=== PATIENT | female | born 1945 | race Caucasian/White ===

== ENCOUNTER 2017-04-19 06:45 | Outpatient (RCR) | payer MEDICARE, BC, SELFPAY ==
[2017-01-31 10:22] VITALS: BMI 29.3
== END 2017-05-18 23:59 ==
LOC: CR 06:45
PROVIDERS: Family Provider Family Medicine; PCP Family Medicine; Visit Provider Internal Medicine Cardiovascular Disease
DX: Z00.00 Encounter for general adult medical examination without abnormal findings (principal)

== ENCOUNTER 2017-05-13 13:07 | Outpatient (RCR) | payer MEDICARE, BC, SELFPAY ==
[2017-01-31 10:22] VITALS: BMI 29.3
[2017-05-06 15:41] LABS: Prothrombin Time (Protime)PT. 44.7 SECONDS (11.7-14.9)
[2017-05-09 13:11] LABS: International Normalized Ratio 2.9; Prothrombin Time (Protime)PT. 28.8 SECONDS (11.7-14.9)
[2017-05-13 14:37] LABS: International Normalized Ratio 1.8; Prothrombin Time (Protime)PT. 20.5 SECONDS (11.7-14.9)
== END 2017-05-13 14:00 | disposition home or self-care (01) ==
LOC: LAB 13:07
PROVIDERS: Family Provider Family Medicine; PCP Family Medicine; Visit Provider Internal Medicine Cardiovascular Disease
DX: I48.0 Paroxysmal atrial fibrillation (principal)
CPT/HCPCS: 36415; 85610

== ENCOUNTER 2017-06-03 08:58 | Outpatient (RCR) | payer MEDICARE, BC, SELFPAY ==
[2017-01-31 10:22] VITALS: BMI 29.3
[2017-05-26 10:56] LABS: International Normalized Ratio 1.7; Prothrombin Time (Protime)PT. 19.4 SECONDS (11.7-14.9)
[2017-06-01 13:36] LABS: International Normalized Ratio 1.5; Prothrombin Time (Protime)PT. 17.7 SECONDS (11.7-14.9)
[2017-06-03 10:49] LABS: International Normalized Ratio 1.8; Prothrombin Time (Protime)PT. 19.8 SECONDS (11.7-14.9)
== END 2017-06-03 09:00 | disposition home or self-care (01) ==
LOC: LAB 08:58
PROVIDERS: Family Provider Family Medicine; PCP Family Medicine; Visit Provider Internal Medicine Cardiovascular Disease
DX: I48.0 Paroxysmal atrial fibrillation (principal)
CPT/HCPCS: 36415; 85610

== ENCOUNTER → 2017-07-13 07:43 | Outpatient (CLI) | payer MEDICARE, BC, SELFPAY ==
[2017-01-31 10:22] VITALS: BMI 29.3
[2017-07-13 09:44] LABS: ALB/GLOB Ratio 1.1 RATIO (0.9-2.4); AST(SGOT) 31 U/L (15-37); Alanine Aminotransfer ALT/SGPT 28 U/L (13-56); Albumin, Serum 3.7 g/dL (3.2-5.0); Alkaline Phosphatase 65 U/L (45-117); Anion Gap 8 (5-15); BUN 17 mg/dL (7-18); BUN/Creat Ratio 20.6 RATIO (10-20); Calcium,Total 8.8 mg/dL (8.5-10.1); Chloride 99 mmol/L (98-107); Cholesterol 149 mg/dL (200); Creatinine, Serum 0.82 mg/dL (0.55-1.02); EST Glomerular Filtration Rate 72 mL/min (>60); Est Glom Filt Rate - Afr Amer 88 mL/min (>60); Globulin 3.5 g/dL (2.2-4.2); Glucose 113 mg/dL (74-106); High Density Lipoprotein 51 mg/dL; Potassium 4.1 mmol/L (3.5-5.1); Protein, Total 7.2 g/dL (6.4-8.2); Sodium Level 139 mmol/L (136-145); Triglycerides 144 mg/dL; Very Low Density Lipoprotein 29 mg/dL (5-40)
[2017-07-13 09:46] LABS: Hemoglobin A1c 6.7 % (4.2-6.3)
== END ==
PROVIDERS: Family Provider Family Medicine; PCP Family Medicine; Visit Provider Family Medicine
DX: I10 Essential (primary) hypertension (principal); E78.2 Mixed hyperlipidemia; E11.49 Type 2 diabetes mellitus with other diabetic neurological complication
CPT/HCPCS: 36415; 80053; 80061; 83036

== ENCOUNTER 2017-08-08 09:43 | Outpatient (RCR) | payer MEDICARE, BC, SELFPAY ==
[2017-01-31 10:22] VITALS: BMI 29.3
[2017-08-08 10:23] LABS: International Normalized Ratio 3.1
== END 2017-08-08 10:00 | disposition home or self-care (01) ==
LOC: LAB 09:43
PROVIDERS: Family Provider Family Medicine; PCP Family Medicine; Visit Provider Internal Medicine Cardiovascular Disease
DX: I48.0 Paroxysmal atrial fibrillation (principal)
CPT/HCPCS: 36415; 85610

== ENCOUNTER → 2017-08-18 08:09 | Outpatient (CLI) | payer MEDICARE, BC, SELFPAY ==
[2017-01-31 10:22] VITALS: BMI 29.3
[2017-08-18 09:53] LABS: AST(SGOT) 23 U/L (15-37); Alanine Aminotransfer ALT/SGPT 27 U/L (13-56); Albumin, Serum 3.7 g/dL (3.2-5.0); Alkaline Phosphatase 66 U/L (45-117); Bilirubin, Direct 0.15 mg/dL (0.00-0.30); Cholesterol 132 mg/dL (200); Globulin 3.7 g/dL (2.2-4.2); High Density Lipoprotein 45 mg/dL; Protein, Total 7.4 g/dL (6.4-8.2); Triglycerides 100 mg/dL; Very Low Density Lipoprotein 20 mg/dL (5-40)
== END ==
PROVIDERS: Family Provider Family Medicine; PCP Family Medicine; Visit Provider Internal Medicine Cardiovascular Disease
DX: I25.10 Atherosclerotic heart disease of native coronary artery without angina pectoris (principal); Z95.5 Presence of coronary angioplasty implant and graft; Z79.899 Other long term (current) drug therapy
CPT/HCPCS: 36415; 80061; 80076

== ENCOUNTER 2017-08-30 09:05 | Outpatient (RCR) | payer MEDICARE, BC, SELFPAY ==
[2017-01-31 10:22] VITALS: BMI 29.3
[2017-08-30 10:47] LABS: International Normalized Ratio 2.7; Prothrombin Time (Protime)PT. 28.8 SECONDS (11.7-14.9)
== END 2017-08-30 10:00 | disposition home or self-care (01) ==
LOC: LAB 09:05
PROVIDERS: Family Provider Family Medicine; PCP Family Medicine; Visit Provider Internal Medicine Cardiovascular Disease
DX: I48.0 Paroxysmal atrial fibrillation (principal)
CPT/HCPCS: 36415; 85610

== ENCOUNTER → 2017-09-21 14:09 | Outpatient (CLI) | payer MEDICARE, BC, SELFPAY ==
[2017-01-31 10:22] VITALS: BMI 29.3
--- NOTE | 2017-09-21 14:09 | DT_ITS ---
This patient was seen during an EMR downtime September 19, 2017 - September 26, 2017. This patient may have a combination of paper and electronic documentation or all paper documentation. All documentation is viewable within the e-chart portion of [facility] for each patient visit.
[2017-09-24 10:47] LABS: International Normalized Ratio 2.7; Prothrombin Time (Protime)PT. 29.1 SECONDS (11.7-14.9)
== END ==
PROVIDERS: Family Provider Family Medicine; PCP Family Medicine; Visit Provider Internal Medicine Cardiovascular Disease
DX: I48.1 Persistent atrial fibrillation (principal)
CPT/HCPCS: 85610

== ENCOUNTER → 2017-10-06 10:57 | Outpatient (CLI) | payer MEDICARE, BC, SELFPAY ==
[2017-01-31 10:22] VITALS: BMI 29.3
--- NOTE | 2017-10-06 11:08 | MRI_ITS ---
STUDY: MRI RIGHT MIDFOOT REASON FOR EXAM: Female, 72 years old. Pain. TECHNIQUE: Standardized fat and water weighted pulse sequences were obtained in all 3 orthogonal planes. COMPARISON: None. FINDINGS: There is a lobular heterogeneous T2 signal hyperintensity 3.2 x 2.8 x 2.2 cm mass in the plantar aspect deep to the flexor muscles extending to the first and second intermetatarsal region at the level of the distal second and third metatarsals, series 6 images 04/10 through . Normal talonavicular articulation. Normal calcaneocuboid articulation. Normal navicular-cuneiform articulations. Normal intercuneiform articulations. Normal first tarsometatarsal articulation. Normal Lisfranc ligament. Normal second and third tarsometatarsal articulations. Normal cuboid fourth and cuboid fifth tarsometatarsal articulation. There is marrow edema due to signal hyperintensity of the shaft of the second metatarsal, series 6 image . Normal tibialis anterior tendon. Normal extensor hallucis longus tendon. Normal extensor digitorum longus tendons. Normal peroneus longus tendon and distal insertion. Normal peroneus brevis tendon and distal insertion. Normal intrinsic muscles of the mid and forefoot region. Normal extensor digitorum brevis muscle. Normal subcutis adipose space. MRI/Lower Ext/No Jt/w/o IMPRESSION: Mass on the plantar aspect. Neuroma is the leading consideration. Stress fracture of the second metatarsal. Electronically Signed: Gopal Hernández MD at 12:36 EDT , Service support ,
== END ==
PROVIDERS: Family Provider Family Medicine; PCP Family Medicine; Visit Provider Podiatrist
DX: M79.9 Soft tissue disorder, unspecified (principal); M79.671 Pain in right foot; M70.871 Other soft tissue disorders related to use, overuse and pressure, right ankle and foot; M84.374A Stress fracture, right foot, initial encounter for fracture
CPT/HCPCS: 73718

== ENCOUNTER 2017-10-18 06:36 | Outpatient (RCR) | payer MEDICARE, BC, SELFPAY ==
[2017-01-31 10:22] VITALS: BMI 29.3
[2017-05-02 09:09] VITALS: BP 100/52; BMI 27.3
== END 2017-11-15 23:59 ==
LOC: CR 06:36
PROVIDERS: Family Provider Family Medicine; PCP Family Medicine; Visit Provider Internal Medicine Cardiovascular Disease
DX: Z00.00 Encounter for general adult medical examination without abnormal findings (principal)

== ENCOUNTER → 2017-11-02 15:00 | Outpatient (CLI) | payer MEDICARE, BC, SELFPAY ==
[2017-01-31 10:22] VITALS: BMI 29.3
== END ==
PROVIDERS: Family Provider Family Medicine; PCP Family Medicine; Visit Provider Internal Medicine Cardiovascular Disease
DX: Z01.810 Encounter for preprocedural cardiovascular examination (principal)
CPT/HCPCS: 93306

== ENCOUNTER → 2017-11-03 07:27 | Outpatient (CLI) | payer MEDICARE, BC, SELFPAY ==
[2017-01-31 10:22] VITALS: BMI 29.3
[2017-11-03 09:12] LABS: Hemoglobin A1c 7.1 % (4.2-6.3)
[2017-11-03 09:14] LABS: Albumin, Serum 3.7 g/dL (3.2-5.0); BUN 20 mg/dL (7-18); BUN/Creat Ratio 21.1 RATIO (10-20); Creatinine, Serum 0.95 mg/dL (0.55-1.02); EST Glomerular Filtration Rate 62 mL/min (>60); Est Glom Filt Rate - Afr Amer 75 mL/min (>60); Glucose 114 mg/dL (74-106); Protein, Total 7.4 g/dL (6.4-8.2)
[2017-11-03 09:15] LABS: AST(SGOT) 34 U/L (15-37); Alanine Aminotransfer ALT/SGPT 34 U/L (13-56); Alkaline Phosphatase 74 U/L (45-117); Anion Gap 6 (5-15); Calcium,Total 9.1 mg/dL (8.5-10.1); Chloride 101 mmol/L (98-107); Cholesterol 149 mg/dL (200); Globulin 3.7 g/dL (2.2-4.2); High Density Lipoprotein 46 mg/dL; Potassium 4.5 mmol/L (3.5-5.1); Sodium Level 140 mmol/L (136-145); Triglycerides 174 mg/dL; Very Low Density Lipoprotein 35 mg/dL (5-40)
== END ==
PROVIDERS: Family Provider Family Medicine; PCP Family Medicine; Visit Provider Family Medicine
DX: E11.49 Type 2 diabetes mellitus with other diabetic neurological complication (principal); I10 Essential (primary) hypertension; E78.2 Mixed hyperlipidemia
CPT/HCPCS: 36415; 80053; 80061; 83036

== ENCOUNTER 2017-11-11 08:58 | Outpatient (RCR) | payer MEDICARE, BC, SELFPAY ==
[2017-01-31 10:22] VITALS: BMI 29.3
[2017-10-27 14:01] LABS: International Normalized Ratio 3.2; Prothrombin Time (Protime)PT. 33.2 SECONDS (11.7-14.9)
[2017-11-11 09:45] LABS: Prothrombin Time (Protime)PT. 40.9 SECONDS (11.7-14.9)
[2017-11-11 09:50] LABS: International Normalized Ratio 4.2
[2017-11-16 14:52] LABS: International Normalized Ratio 2.8
== END 2017-11-11 09:30 | disposition home or self-care (01) ==
LOC: LAB 08:58
PROVIDERS: Family Provider Family Medicine; PCP Family Medicine; Visit Provider Internal Medicine Cardiovascular Disease
DX: I48.0 Paroxysmal atrial fibrillation (principal); Z79.01 Long term (current) use of anticoagulants
CPT/HCPCS: 36415; 36416; 85610

== ENCOUNTER → 2017-11-11 09:09 | Outpatient (CLI) | payer MEDICARE, BC, SELFPAY ==
[2017-01-31 10:22] VITALS: BMI 29.3
--- NOTE | 2017-11-11 09:10 | STE_ITS ---
Reason For Study: CAD/ASHD Stress Results Protocol: Gus Protocol Maximum Predicted HR: 149 bpm Target HR: 127 bpm% Max imum Predicted HR: 66 % DurationHeart Rate Stage (mm:ss) (bpm) BPCom ment BASELINE 48 124/70 STAGE 1 3:00 74 158/82 STAGE 2 3:00 95 170/82INCREASED SOB STAGE 3 0:16 98 / FAT IGUE, SOB, UNABLE TO CONTINUE RECOVERY 60 140/72 Stress Duration: 6:16 mm:ss Maximum Stress HR: 98 bpm Baseline Echocardiogram Findings The estimated ejection fraction is 65 %. Stress Echo Wall motion Data Resting WMIntermediate WMStress WM Resting Wall Motion Wall Motion Stress No regional wall motion No regional wall motion abnormalities noted. abnormalities noted. EKG Data The baseline ECG demonstrates normal sinus rhythm with at rate of _ beats per minute. The patient exercised according to the regular Gus protocol for a total duration of 6:16. The maximum heart rate attained was 102 beats per minute. This was 68% of maximum predicted heart rate. The patient exercised into stage 3 of the Gus protocol. During stress, there were no ST or T wave changes noted to suggest ischemia. Interpretation Summary The estimated ejection fraction is 65 %. Normal, submaximal, treadmill echocardiogram. Negative for ischemia by EKG and echocardiographic criteria. No anginal symptoms noted. Rare PVC noted. Appropriate blood pressure response to exercise. Average exercise capacity for age. Test terminated due to dyspnea and fatigue. Patient had adequate rate pressure product making this an accurate evaluation. Final LVEF is 75%. No complications. Ordering Physician: Kristofer Ward Referring Physician: Kristofer Ward Performed By: Wild Varma RCS
== END ==
PROVIDERS: Family Provider Family Medicine; PCP Family Medicine; Visit Provider Internal Medicine Cardiovascular Disease
DX: Z01.810 Encounter for preprocedural cardiovascular examination (principal); I25.10 Atherosclerotic heart disease of native coronary artery without angina pectoris; E78.5 Hyperlipidemia, unspecified
CPT/HCPCS: 36415; 36416; 85610; 93017; 93350

== ENCOUNTER 2017-12-15 15:17 | Outpatient (RCR) | payer MEDICARE, BC, SELFPAY ==
[2017-01-31 10:22] VITALS: BMI 29.3
[2017-12-07 10:39] LABS: International Normalized Ratio 2.1; Prothrombin Time (Protime)PT. 23.2 SECONDS (11.7-14.9)
[2017-12-15 17:28] LABS: International Normalized Ratio 2.8
== END 2017-12-15 17:00 | disposition home or self-care (01) ==
LOC: LAB 15:17
PROVIDERS: Family Provider Family Medicine; Visit Provider Internal Medicine Cardiovascular Disease
DX: I48.0 Paroxysmal atrial fibrillation (principal); Z79.01 Long term (current) use of anticoagulants
CPT/HCPCS: 36415; 85610

== ENCOUNTER 2017-12-20 06:31 | Outpatient (RCR) | payer SELFPAY ==
[2017-01-31 10:22] VITALS: BMI 29.3
== END 2018-01-15 23:59 ==
LOC: CR 06:31
PROVIDERS: Family Provider Family Medicine; Visit Provider Internal Medicine Cardiovascular Disease
DX: Z00.00 Encounter for general adult medical examination without abnormal findings (principal)

== ENCOUNTER 2018-01-11 09:37 | Outpatient (RCR) | payer MEDICARE, BC, SELFPAY ==
[2017-01-31 10:22] VITALS: BMI 29.3
[2017-12-26 16:13] LABS: Prothrombin Time (Protime)PT. 35.6 SECONDS (11.7-14.9)
[2017-12-26 16:43] LABS: International Normalized Ratio 3.5
[2018-01-04 11:21] LABS: Prothrombin Time (Protime)PT. 23.1 SECONDS (11.7-14.9)
[2018-01-11 10:42] LABS: International Normalized Ratio 2.1; Prothrombin Time (Protime)PT. 23.9 SECONDS (11.7-14.9)
== END 2018-01-11 11:00 | disposition home or self-care (01) ==
LOC: LAB 09:37
PROVIDERS: Visit Provider Internal Medicine Cardiovascular Disease
DX: I48.0 Paroxysmal atrial fibrillation (principal); Z79.01 Long term (current) use of anticoagulants
CPT/HCPCS: 36415; 85610

== ENCOUNTER 2018-02-06 08:36 | Outpatient (RCR) | payer MEDICARE, BC, SELFPAY ==
[2017-01-31 10:22] VITALS: BMI 29.3
[2018-01-25 16:17] LABS: Prothrombin Time (Protime)PT. 22.7 SECONDS (11.7-14.9)
[2018-02-06 10:41] LABS: International Normalized Ratio 2.2; Prothrombin Time (Protime)PT. 24.6 SECONDS (11.7-14.9)
== END 2018-02-06 10:00 | disposition home or self-care (01) ==
LOC: LAB 08:36
PROVIDERS: Referring Provider Internal Medicine Cardiovascular Disease; Visit Provider Internal Medicine Cardiovascular Disease
DX: I48.0 Paroxysmal atrial fibrillation (principal); Z79.01 Long term (current) use of anticoagulants
CPT/HCPCS: 36415; 85610

== ENCOUNTER 2018-03-08 09:14 | Outpatient (RCR) | payer MEDICARE, BC, SELFPAY ==
[2017-01-31 10:22] VITALS: BMI 29.3
[2018-02-24 13:46] LABS: International Normalized Ratio 1.7
[2018-03-06 11:48] LABS: AST(SGOT) 32 U/L (15-37); Alanine Aminotransfer ALT/SGPT 33 U/L (13-56); Albumin, Serum 3.7 g/dL (3.2-5.0); Alkaline Phosphatase 92 U/L (45-117); Bilirubin, Direct 0.17 mg/dL (0.00-0.30); Cholesterol 162 mg/dL (200); High Density Lipoprotein 43 mg/dL; Protein, Total 7.7 g/dL (6.4-8.2); Triglycerides 241 mg/dL; Very Low Density Lipoprotein 48 mg/dL (5-40)
[2018-03-08 10:17] LABS: International Normalized Ratio 2.1; Prothrombin Time (Protime)PT. 23.2 SECONDS (11.7-14.9)
== END 2018-03-17 12:00 | disposition home or self-care (01) ==
LOC: LAB 09:14
PROVIDERS: Physician Assistant Medical; Referring Provider Internal Medicine Cardiovascular Disease; Visit Provider Internal Medicine Cardiovascular Disease
DX: I48.0 Paroxysmal atrial fibrillation (principal); Z79.01 Long term (current) use of anticoagulants; E78.5 Hyperlipidemia, unspecified
CPT/HCPCS: 36415; 80061; 80076; 85610

== ENCOUNTER 2018-03-22 09:49 | Outpatient (RCR) | payer MEDICARE, BC, SELFPAY ==
[2017-01-31 10:22] VITALS: BMI 29.3
[2018-03-22 10:31] LABS: International Normalized Ratio 2.1; Prothrombin Time (Protime)PT. 23.6 SECONDS (11.7-14.9)
== END 2018-04-17 23:59 ==
LOC: CR 09:49
PROVIDERS: Referring Provider Internal Medicine Cardiovascular Disease; Visit Provider Internal Medicine Cardiovascular Disease
DX: Z00.00 Encounter for general adult medical examination without abnormal findings (principal); I48.0 Paroxysmal atrial fibrillation; Z79.01 Long term (current) use of anticoagulants
CPT/HCPCS: 36415; 85610

== ENCOUNTER 2018-04-13 11:13 | Outpatient (RCR) | payer MEDICARE, BC, SELFPAY ==
[2017-01-31 10:22] VITALS: BMI 29.3
[2018-04-13 13:43] LABS: International Normalized Ratio 2.1; Prothrombin Time (Protime)PT. 23.2 SECONDS (11.7-14.9)
== END 2018-04-13 12:00 | disposition home or self-care (01) ==
LOC: LAB 11:13
PROVIDERS: Family Provider Family Medicine; PCP Family Medicine; Referring Provider Internal Medicine Cardiovascular Disease; Visit Provider Internal Medicine Cardiovascular Disease
DX: I48.0 Paroxysmal atrial fibrillation (principal); Z79.01 Long term (current) use of anticoagulants
CPT/HCPCS: 36415; 85610

== ENCOUNTER 2018-05-19 10:52 | Outpatient (RCR) | payer MEDICARE, BC, SELFPAY ==
[2017-01-31 10:22] VITALS: BMI 29.3
[2018-05-19 11:37] LABS: International Normalized Ratio 2.2; Prothrombin Time (Protime)PT. 24.7 SECONDS (11.7-14.9)
== END 2018-06-15 13:16 | disposition home or self-care (01) ==
LOC: LAB 10:52
PROVIDERS: Family Provider Family Medicine; PCP Family Medicine; Referring Provider Internal Medicine Cardiovascular Disease; Visit Provider Internal Medicine Cardiovascular Disease
DX: I48.0 Paroxysmal atrial fibrillation (principal); Z79.01 Long term (current) use of anticoagulants
CPT/HCPCS: 36415; 84439; 84443; 85610

== ENCOUNTER → 2018-05-31 12:13 | Outpatient (CLI) | payer MEDICARE, BC, SELFPAY ==
[2017-01-31 10:22] VITALS: BMI 29.3
[2018-05-19 11:09] VITALS: BMI 28.8
--- NOTE | 2018-05-31 12:16 | STEWCON_ITS ---
Reason For Study: CAD Stress Results Protocol: Gus Protocol Maximum Predicted HR: 148 bpm Target HR: 126 bpm % Maximum Predicted HR: 72 % DurationHeart Rate Stage (mm:ss) (bpm) BP Comment Baseline 61 134/72No Chest Pain; Diluted Definity 2 ML Given Gus Protocol Stage I 3:00 86 160/78No Chest Pain; Legs Heavy; Mild Dyspnea Gus Protocol Stage II 3:00 106 184/80No Chest Pain; Moderate Dyspnea; Fatigue Recovery 66 124/76No Chest Pain Stress Duration: 6:00 mm:ss Maximum Stress HR: 106 bpm METS: 7 Baseline Echocardiogram Findings The estimated ejection fraction is 65 %. Stress Echo Wall motion Data Resting WM Intermediate WM Stress WM Resting Wall Motion Wall Motion Stress No regional wall motion No regional wall motion abnormalities noted. abnormalities noted. EKG Data The baseline ECG displays normal sinus rhythm. The patient exercised according to the regular Gus protocol for a total duration of 6:00. The maximum heart rate attained was 112 beats per minute. This was 75% of maximum predicted heart rate. The patient exercised into stage 3 of the Gus protocol. During stress, there were no ST or T wave changes noted to suggest ischemia. No clinical angina was noted. No arrhythmias noted. Interpretation Summary The estimated ejection fraction is 65 %. Normal, adequate, treadmill echocardiogram. Negative for ischemia by EKG and echocardiographic criteria. No anginal symptoms noted. No arrhythmias noted. Appropriate blood pressure response to exercise. Below average exercise capacity for age. Test terminated due to dyspnea. Although the patient did not reach target heart rate, heart rate pressure product was adequate for testing purposes at 18,768. Final LVEF of 75%. Decreased sensitivity due to poor echo windows requiring Definity enhancing agent. No complications. The study was technically difficult. Contrast injection was performed. Ordering Physician: Kristofer Ward Referring Physician: Kristofer Ward Performed By: Wild Varma RCS
== END ==
PROVIDERS: Referring Provider Internal Medicine Cardiovascular Disease; Visit Provider Internal Medicine Cardiovascular Disease
DX: I25.10 Atherosclerotic heart disease of native coronary artery without angina pectoris (principal); E78.5 Hyperlipidemia, unspecified
CPT/HCPCS: 93017; 93350; Q9957; A4216; C8928

== ENCOUNTER 2018-06-08 08:52 | Outpatient (RCR) | payer MEDICARE, BC, SELFPAY ==
[2017-01-31 10:22] VITALS: BMI 29.3
[2018-05-19 11:09] VITALS: BMI 28.8
[2018-06-08 09:26] LABS: International Normalized Ratio 2.1; Prothrombin Time (Protime)PT. 23.7 SECONDS (11.7-14.9)
== END 2018-06-15 23:59 ==
LOC: CR 08:52
PROVIDERS: Referring Provider Internal Medicine Cardiovascular Disease; Visit Provider Internal Medicine Cardiovascular Disease
DX: I48.0 Paroxysmal atrial fibrillation (principal); Z79.01 Long term (current) use of anticoagulants
CPT/HCPCS: 36415; 85610

== ENCOUNTER 2018-08-09 09:36 | Outpatient (RCR) | payer MEDICARE, BC, SELFPAY ==
[2017-01-31 10:22] VITALS: BMI 29.3
[2018-05-19 11:09] VITALS: BMI 28.8
[2018-07-24 12:41] LABS: International Normalized Ratio 1.6; Prothrombin Time (Protime)PT. 19.2 SECONDS (11.7-14.9)
[2018-08-09 10:29] LABS: International Normalized Ratio 2.8; Prothrombin Time (Protime)PT. 29.2 SECONDS (11.7-14.9)
== END 2018-08-15 16:00 | disposition home or self-care (01) ==
LOC: LAB 09:36
PROVIDERS: Referring Provider Internal Medicine Cardiovascular Disease; Visit Provider Internal Medicine Cardiovascular Disease
DX: I48.0 Paroxysmal atrial fibrillation (principal); Z79.01 Long term (current) use of anticoagulants
CPT/HCPCS: 36415; 85610

== ENCOUNTER 2018-09-20 10:12 | Outpatient (RCR) | payer MEDICARE, BC, SELFPAY ==
[2017-01-31 10:22] VITALS: BMI 29.3
[2018-05-19 11:09] VITALS: BMI 28.8
== END 2018-09-20 11:00 | disposition home or self-care (01) ==
LOC: LAB 10:12
PROVIDERS: Family Provider Family Medicine; PCP Family Medicine; Referring Provider Internal Medicine Cardiovascular Disease; Visit Provider Internal Medicine Cardiovascular Disease
DX: I48.0 Paroxysmal atrial fibrillation (principal); Z79.01 Long term (current) use of anticoagulants
CPT/HCPCS: 36415; 85610

== ENCOUNTER 2018-10-25 13:02 | Outpatient (RCR) | payer MEDICARE, BC, SELFPAY ==
[2017-01-31 10:22] VITALS: BMI 29.3
[2018-05-19 11:09] VITALS: BMI 28.8
[2018-10-25 14:35] LABS: International Normalized Ratio 2.3; Prothrombin Time (Protime)PT. 25.4 SECONDS (11.7-14.9)
== END 2018-11-15 17:28 | disposition home or self-care (01) ==
LOC: LAB 13:02
PROVIDERS: Family Provider Family Medicine; PCP Family Medicine; Referring Provider Internal Medicine Cardiovascular Disease; Visit Provider Internal Medicine Cardiovascular Disease
DX: I48.0 Paroxysmal atrial fibrillation (principal); Z79.01 Long term (current) use of anticoagulants
CPT/HCPCS: 36415; 85610

== ENCOUNTER 2018-12-21 06:57 | Outpatient (RCR) | payer MEDICARE, BC, SELFPAY ==
[2017-01-31 10:22] VITALS: BMI 29.3
[2018-05-19 11:09] VITALS: BMI 28.8
[2018-12-21 07:41] LABS: International Normalized Ratio 2.8; Prothrombin Time (Protime)PT. 29.4 SECONDS (11.7-14.9)
[2018-12-21 08:00] LABS: Anion Gap 7 (5-15); BUN 22 mg/dL (7-18); BUN/Creat Ratio 18.8 RATIO (10-20); Calcium,Total 9.1 mg/dL (8.5-10.1); Chloride 101 mmol/L (98-107); Creatinine, Serum 1.17 mg/dL (0.55-1.02); EST Glomerular Filtration Rate 48 mL/min (>60); Est Glom Filt Rate - Afr Amer 58 mL/min (>60); Glucose 163 mg/dL (74-106); Sodium Level 138 mmol/L (136-145)
[2018-12-21 08:04] LABS: AST(SGOT) 29 U/L (15-37); Alanine Aminotransfer ALT/SGPT 28 U/L (13-56); Albumin, Serum 3.7 g/dL (3.2-5.0); Alkaline Phosphatase 87 U/L (45-117); Bilirubin, Direct 0.14 mg/dL (0.00-0.30); Cholesterol 158 mg/dL (200); High Density Lipoprotein 43 mg/dL; Protein, Total 7.7 g/dL (6.4-8.2); Triglycerides 214 mg/dL; Very Low Density Lipoprotein 43 mg/dL (5-40)
[2018-12-21 11:50] LABS: Magnesium 2.1 mg/dL (1.6-2.6); T4 Total, Thyroxin 13.7 ug/dL (4.8-13.9); Thyroid Stim Hormone (TSH) 4.97 uIU/mL (0.358-3.74)
== END 2018-12-21 09:00 | disposition home or self-care (01) ==
LOC: LAB 06:57
PROVIDERS: Nurse Practitioner Family; Physician Assistant Medical; Referring Provider Internal Medicine Cardiovascular Disease; Visit Provider Internal Medicine Cardiovascular Disease
DX: I48.0 Paroxysmal atrial fibrillation (principal); Z79.01 Long term (current) use of anticoagulants; E78.5 Hyperlipidemia, unspecified
CPT/HCPCS: 36415; 71046; 80048; 80061; 80076; 83735; 84436; 84443; 85027; 85610; 85730

== ENCOUNTER → 2018-12-29 09:06 | Outpatient (CLI) | payer MEDICARE, BC, SELFPAY ==
[2017-01-31 10:22] VITALS: BMI 29.3
[2018-12-21 10:52] VITALS: BMI 29.5
--- NOTE | 2018-12-29 09:13 | RAD_ITS ---
STUDY: X-RAY CHEST REASON FOR EXAM: Female, 73 years old. Cough shortness of breath and general illness x1 week TECHNIQUE: PA and lateral views of the chest. COMPARISON: Prior study of 12/21/2018 FINDINGS: There is minimal left basilar atelectasis, new in the interval. There is no demonstrated pleural abnormality. Normal size heart. Normal mediastinum and pamela. Normal visualized pulmonary arteries. There are calcified plaques of the aortic arch. There is mild diffuse endplate spondylosis of the thoracic spine. Normal visualized ribs, clavicles, and shoulders. There is no demonstrated abnormality of the visualized soft tissue structures of the upper abdomen. RAD/Chest PA and Lateral IMPRESSION: Minimal left basilar atelectasis, new in the interval. Mild endplate spondylosis of the thoracic spine. Electronically Signed: Chapito Ch MD at 22:10 EDT , Service support ,
== END ==
DX: R05 Cough (principal)
CPT/HCPCS: 71046

== ENCOUNTER 2019-01-10 07:52 | Day surgery (SDC) | payer MEDICARE, BC, SELFPAY ==
[2017-01-31 10:22] VITALS: BMI 29.3
[2018-12-21 10:52] VITALS: BMI 29.5
--- NOTE | 2018-12-21 12:00 | RAD_ITS ---
STUDY: X-RAY CHEST REASON FOR EXAM: Female, 73 years old. Shortness of breath and feeling cold for a couple of months. TECHNIQUE: PA and lateral views of the chest. COMPARISON: [facility] upright chest x-ray September 10, 2016. FINDINGS: The lungs are clear and expanded. There is no demonstrated pleural abnormality. Normal size heart. Normal mediastinum and pamela. Normal visualized pulmonary arteries. There is stable atherosclerotic calcification of the aortic arch and descending thoracic aorta. There are stable multilevel degenerative changes of the visualized thoracic spine. Normal visualized ribs, clavicles, and shoulders. There is no demonstrated abnormality of the visualized soft tissue structures of the upper abdomen. RAD/Chest PA and Lateral IMPRESSION: No acute cardiopulmonary pathology. Electronically Signed: John White MD at 13:03 EDT , Service support ,
[2018-12-21 13:47] LABS: Hematocrit 47.9 % (37-47); Mean Corp Hgb Conc 31.3 g/dL (32-36); Mean Corpuscular Hgb 26.3 pg (27.0-32.0); Mean Platelet Vol. 10.2 fl (6.2-12.0); Platelet Count 241 K/mm3 (150-450); RBC Distribution Width CV 15.8 % (11.6-14.6); RBC Distribution Width SD 47.4 fl (35.1-43.9); White Blood Count 9.2 K/mm3 (4.4-11.0)
[2018-12-21 13:56] LABS: Partial Thromboplast Time 45.5 Seconds (24.1-36.2)
[2018-12-21 14:18] LABS: Anion Gap 5 (5-15); BUN 20 mg/dL (7-18); BUN/Creat Ratio 16.8 RATIO (10-20); Calcium,Total 9.4 mg/dL (8.5-10.1); Chloride 97 mmol/L (98-107); Creatinine, Serum 1.19 mg/dL (0.55-1.02); EST Glomerular Filtration Rate 47 mL/min (>60); Est Glom Filt Rate - Afr Amer 57 mL/min (>60); Glucose 129 mg/dL (74-106); Potassium 3.6 mmol/L (3.5-5.1); Sodium Level 135 mmol/L (136-145); Thyroid Stim Hormone (TSH) 3.97 uIU/mL (0.358-3.74)
[2019-01-10 08:33] VITALS: BMI 29.0
[2019-01-10 08:58] LABS: Prothrombin Time Fingerstick 13.9 SEC (11.9-14.4)
--- NOTE | 2019-01-10 09:23 | HP.PCM_ITS ---
Problem List (1) History of left heart catheterization Status: Acute Comment: PCI and JOSUE to LAD 04/30/2016 (2) SOB (shortness of breath) on exertion Status: Acute (3) Atherosclerotic heart disease of [place] coronary artery without angina pectoris Status: Chronic Comment: PCI and JOSUE to LAD 04/30/2016 (4) Hyperlipidemia Status: Chronic (5) Hypertension Status: Chronic (6) Paroxysmal atrial fibrillation with rapid ventricular response Status: Chronic History and Physical Date of Admission: 01/10/19 [facility] [address] [place] [address] OFFICE VISIT Date of Service: 12/21/18 MR#: [id number] Acct: [id number] Name: CYNDY GUNN Rep #: [id number] 1945 Provider: Kristofer sheth MD Age/Sex: 73/F Location: [facility] Status: Signed HPI HPI History of Present Illness Details: HPI Chief Complaint: Routine f/u Details: PCP: Dr. Hernandez This is a 73-year-old female that presents here today for a cardiovascular follow-up. She had an acute anterior ST segment elevation myocardial infarction in April 2016. Heart catheterization at that time demonstrated an occluded LAD, 70% proximal stenosis of the circumflex, small caliber ramus intermedius with 60-70% proximal disease, dominant RCA with 40% stenosis. She had angioplasty and stenting of her LAD. EF at the time of the infarct was 30%. Repeat echocardiogram demonstrated an improved ejection fraction of 45%, stage II diastolic dysfunction, +1 MR, RVSP 42 mmHg. She did have paroxysmal atrial fibrillation requiring amiodarone therapy. She had a nuclear stress test in April 2016 which could not exclude myocardial ischemia in the distal anterior and apical areas. Heart catheterization was reviewed by Dr. Ward. With lack of inferior wall ischemia did not feel that circumflex stenting needed to be done at that time. Patient has completed cardiac rehab without difficulty. She had a repeat echocardiogram in May 2016 which demonstrated an improved ejection fraction of 65-70%. Stage I diastolic dysfunction. Left atrium mildly enlarged. RVSP 29 mmHg. Mild aortic stenosis. Her most recent echocardiogram dated 11/02/2017 showed normalized LV function with an EF of 65%, and an RVSP of 33 mmHg. Patient was seen in the emergency room at the end of August 2016 for atrial fibrillation which she spontaneously converted on her own. Patient states that she's had no exertional chest pressure since September 2016, and is taking and tolerating her medicines well. Patient has had no further atrial fibrillation, and remains on amiodarone. She is also on Coumadin. She also request switching back from Coreg to propanolol due to her essential tremor. Patient did have a stress test on 05/18/16 which was normal to evaluate her left circumflex system. As part of her cardiac surveillance for her left circumflex stenosis she underwent repeat stress echocardiogram on 05/31/2018 which was essentially negative for inducible ischemia although she did not reach target heart rate she had a adequate rate pressure product. Test was terminated due to dyspnea. Patient now returns today in with a chief complaint of worsening fatigue, tiredness, dyspnea on exertion and shortness of breath. She is also complained of some mild faint exertional chest pressure which is similar to but of less intensity from her previous anginal symptoms. She also complains of generalized cold feeling, and numbness in her fingers. In our office today her blood pressure is 140/80 and pulse is 64 and regular. Her physical exam is as below. Her lipids as of 10/15/16 showed and LDL of 59 and HDL of 43. Her lipids as of 08/18/17 showed HDL of 45 and LDL of 67. Repeat lipids as of 03/06/18 show an LDL of 71 and HDL of 43. Repeat lipids dated 12/21/2018 show an LDL of 72 and HDL of 43. EKG previously shows normal sinus rhythm, normal axis, Old anteroseptal wall [place], QT corrected of approximately 437 ms. EKG today 12/21/2018 demonstrates normal sinus rhythm with evidence of old anterior wall myocardial infarction. On 02/18/17 her TSH was 4.04 and T4 was 14.5. Repeat thyroid studies dated 05/19/2018 showed a TSH of 3.90. Intake Vital Signs 12/21/18 Height 5 ft 6 in 12/21/18 Weight: 183 lb 12/21/18 Body Mass Index (BMI) 29.5 12/21/18 Blood Pressure 140/80 H 12/21/18 Blood Pressure Location Lt brachial 12/21/18 Respiratory Rate 20 H 12/21/18 Pulse Rate 64 12/21/18 Pulse Source Auscultation Intake Visit Reasons: 6 M FU Allergies Myceline Adverse Reaction (Uncoded 05/02/17 09:07) Dizziness Medications Canagliflozin [Invokana] 300 mg PO DAILY 04/30/16 [History Confirmed 12/21/18] Multivitamin [Daily Multiple Vitamin] 1 ea PO DAILY 04/30/16 [History Confirmed 12/21/18] metFORMIN HCl [Glucophage] 850 mg PO BIDCM 04/30/16 [History Confirmed 12/21/18] Aspirin E.C. [Ecotrin] 81 mg PO DAILY@0800 tab 05/03/16 [Rx Confirmed 12/21/18] Nitroglycerin (INPATIENT USE) [Nitrostat] 0.4 mg SUBLINGUAL Q5M PRN #1 bottle 05/03/16 [Rx Confirmed 12/21/18] warfarin 2 mg tablet 2 mg PO .COMPLEX #180 tab 11/11/17 [Rx Confirmed 12/21/18] spironolactone 25 mg tablet 12.5 mg PO DAILY #45 tab 05/01/18 [Rx Confirmed 12/21/18] amiodarone 200 mg tablet 200 mg PO QDAY #90 tab 05/19/18 [Rx Confirmed 12/21/18] furosemide 40 mg tablet 40 mg PO DAILY #90 tab 05/19/18 [Rx Confirmed 12/21/18] losartan 100 mg tablet 100 mg PO DAILY #90 tab 05/19/18 [Rx Confirmed 12/21/18] magnesium oxide 400 mg (241.3 mg magnesium) tablet 400 mg PO DAILYCM #90 tab 05/19/18 [Rx Confirmed 12/21/18] atorvastatin 20 mg tablet 20 mg PO QHS #90 tab 05/22/18 [Rx Confirmed 12/21/18] omeprazole 10 mg capsule,delayed release 10 mg PO DAILY #90 cap 08/28/18 [Rx Confirmed 12/21/18] propranolol XL 80 mg capsule,extended release 24 hr 80 mg PO QDAY #30 cap 10/17/18 [Rx Confirmed 12/21/18] potassium chloride ER 10 mEq tablet,extended release(part/cryst) 10 meq PO BID #180 tab 11/01/18 [Rx Confirmed 12/21/18] [facility] Medical History Pre-operative cardiovascular examination (Acute) 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) Atherosclerotic heart disease of [place] coronary artery without angina pectoris (Chronic) Nonsustained ventricular tachycardia (Chronic) Paroxysmal atrial fibrillation with rapid ventricular response (Chronic) Diabetes mellitus type 2 in nonobese (Chronic) Hyperlipidemia (Chronic) Hypertension (Chronic) STEMI (ST elevation myocardial infarction) (Chronic) Essential tremor (Chronic) History of hysterectomy (Chronic) Hypokalemia (Chronic) Chronic systolic (congestive) heart failure (Resolved) Ischemic cardiomyopathy (Resolved) Hypokalemia (Inactive) Hypomagnesemia (Inactive) Surgical History History of left heart catheterization (Acute) Stented coronary artery (Chronic) Family History Father CAD (coronary artery disease) Social History (Updated 12/21/18 @ 11:30 by Kristofer Ward MD) Smoking Status: Never smoker ROS Const Const: Positive for fatigue (Wakes up early.), daytime sleepiness and other (Feels very tired, TSH in Feb was slightly elevated. On Amio.); negative for weakness, body ache, fever(s), headache(s), chills, frequent falls, night sweats, difficulty sleeping, excessive sweating, weight gain, weight loss, increased appetite, poor appetite or anorexia Eyes Eyes: Negative for blind spots, loss of peripheral vision, transient loss of vision, blurry vision, change in vision, double vision, floaters, tunnel vision or other ENT ENT: Negative for headache(s), dizziness, hearing loss, tinnitus, Nosebleed/epistaxis, balance problems, post nasal drip, lip swelling, tongue swelling, bleeding gums, hoarseness, neck pain, dry mouth or other Cardio Chest Pain: No Palpitations: No Edema: None Muscle aches with walking: None Resp Respiratory: Positive for SOB with activity (Walking up incline, strenuous exercise, or going up steps.); negative for SOB at rest, SOB orthopnea\SOB lying down, Cough, Coughing up blood/hemoptysis, chest congestion, pain on inspiration, snoring, stridor, wheezing, crackles, paroxysmal nocturnal dyspnea or other GI GI: Negative nausea, vomiting, heartburn, constipation, belching, bloating, cramping, vomiting blood/hematemesis, bright, red blood in stools, black,tarry stools, loose stools, Difficulty Swallowing or other : Negative for hematuria, frequent nighttime urination/ nocturia, erectile dysfunction or abnormal vaginal bleeding Musc Musc: Negative for muscle aches/ myalgia, muscle weakness, joint pain or balance problems Skin Skin: Negative redness, non-healing lesions, rash, unusual bruising, skin ulcer, wounds, jaundice or other Neuro Neuro: Negative for dizziness, lightheadedness, near syncope, syncope, orthostatic symptoms, frequent falls, headache(s), weakness, confusion, memory loss, restless legs, blurry vision, double vision, vertigo, seizures, lack of coordination or other Herb Hematologic/Lymphatic: Negative for easy bleeding, easy bruising, enlarged lymph nodes or other Endo Endo: Positive for fatigue (Wakes up early.); negative for cold intolerance, heat intolerance, excessive sweating, flushing, increased thirst/drinking, increased hunger, hair loss, hair growth or other Psych Psych: Negative for anxiety, depression, thoughts of harming anyone, thoughts of harming yourself, visual hallucinations, panic attacks or audible hallucinations Allergy Allergy/Immunology: Negative for throat swelling, Negative for tongue swelling, Negative for hives, Negative for rash, Negative for lip swelling Cardiology Exam Const Appearance: cooperative, healthy appearing and no acute distress Nutritional Appearance: well nourished Orientation: alert, oriented x3 and oriented to person Head Head: normal to inspection, normocephalic and atraumatic Nose: external nose normal Face and Sinus: face symmetric Mouth: oral mucosae normal Eyes General: appearance normal, both eyes and all related structures Eyelids: eyelids normal Conjunctivae: conjunctivae normal Pupils: PERRL and normal by confrontation EOM: EOM intact bilaterally Neck Neck: normal visual inspection and full ROM Carotids: normal carotid upstroke Chest Chest inspection: normal inspection of the chest Auscultation: Bilateral: Clear to Auscultation Cardio Palpation: normal PMI Rate: regular rate Rhythm: regular rhythm Heart sounds: S1 normal and S2 normal GI GI: normal to inspection, no hepatosplenomegaly and bowel sounds present Neuro General: alert, awake, oriented x3, CN's II-XI intact bilaterally and moves all extremities Skin Skin: no rashes or lesions noted Extremities Pulses: Normal: Right Femoral Pulse, Left Femoral Pulse, Right Dorsalis Pedis Pulse, Left Dorsalis Pedis Pulse, Right Posterior Tibial Pulse, Left Posterior Tibial Pulse, Right Radial Pulse, Left Radial Pulse Lower Extremity Edema: None: Bilateral Psych Psychological: normal affect Assessment & Plan 1. Atherosclerotic heart disease of [place] coronary artery without angina pectoris I25.10 PCI and JOSUE to LAD 04/30/2016 Plan 1. Coronary artery disease: Despite the fact the patient had a stress test within the last year, in May 2018, and despite the fact that she had no overt ischemia noted, this was at a submaximal heart rate level, and yet the patient continues to have struggles with fatigue, dyspnea on exertion, and shortness of breath. Patient had 2 stents to her LAD which were quite small, and remaining disease in her left circumflex and distal right coronary artery. I recommended the patient continue her baby aspirin, losartan, Lasix and spironolactone and propanolol, and that she undergo a repeat left heart catheterization to evaluate her previously placed LAD stents, progression of possible disease in her left circumflex as well as possible progression of disease in her distal right coronary artery. Would recommend starting the patient on Plavix 75 mg p.o. daily, and holding her Coumadin therapy. We will obtain an EKG to determine her heart rhythm although it appears to be in sinus at this time. The risks/benefits of the procedure including specific attention to lack of on-site surgical back-up were thoroughly explained the patient and informed consent was obtained. In addition we will check a BMP and a CBC to determine if she has any anemia, as she has a history of anemia in the past. 2. Paroxysmal atrial fibrillation with rapid ventricular response I48.0 Plan 2. Paroxysmal atrial fibrillation: The patient denies any palpitations, and remains on amiodarone therapy. Her most recent TSH was 3.9. We will hold her Coumadin therapy for impending left heart catheterization. Continue amiodarone. Would recommend switching her from Coumadin therapy to either Xarelto or Eliquis given her chronic fatigue once we have completed her left heart catheterization. Her pulmonary function test from 01/07/2017 were grossly normal. Orders Orders: 12 Lead EKG performed by [facility] Today Basic Metabolic Profile (BMP) Today 3. Hyperlipidemia E78.5 Plan 3. Hyperlipidemia: Her LDL and HDL cholesterol are at goal. Continue Lipitor. This note was generated using a voice recognition system and there may be incorrect words, spelling or punctuation that were not noted when reviewing the office note prior to saving. Plan Detail Other Orders Orders: 12 Lead EKG performed by [facility] Today Z79.899, Z95.5 Basic Metabolic Profile (BMP) Today E11.9, I10 T4 Total, Thyroxin Today Z79.899 Thyroid Stim Hormone (TSH) Today Z79.899 CBC-Complete Blood Cnt No Diff Today Z79.01 Pulmonary Function Test (Comp) Today Z79.899 Chest PA and Lateral Today R06.09 Follow Up +6m (Ed) Coding Level of Care Code Off vis,est,level 3 Diagnoses Atherosclerotic heart disease of [place] coronary artery without angina pectoris I25.10 Paroxysmal atrial fibrillation with rapid ventricular response I48.0 Hyperlipidemia E78.5 Coding Level of Care Code Off vis,est,level 3 Diagnoses Atherosclerotic heart disease of [place] coronary artery without angina pectoris I25.10 Paroxysmal atrial fibrillation with rapid ventricular response I48.0 Hyperlipidemia E78.5 Supplemental Info Supplemental Information Labs LDL Cholesterol 72 mg/dL (0-130) 12/21/18 HDL Cholesterol 43 mg/dL (40-) 12/21/18 Triglycerides 214 mg/dL (-199) H 12/21/18 VLDL Cholesterol 43 mg/dL (5-40) H 12/21/18 Diagnostics Electrocardiogram 12/21/18 Stress Echocardiogram 05/31/18 Stress Test Nuclear Medicine 05/18/16 Cardiac Catheterization 04/30/16 Chest X-Ray 09/10/16 Pulmonary Pulmonary Function Test 01/07/17 12/21/18 1130 <Electronically signed by Kristofer Ward MD> Date _ Kristofer Ward MD Cosigner Signature: Date (if applicable) CC: Marisabel Moe ~ Interventional cardiology addendum: Patient seen and examined and agree with above. No interim changes from last visit. The risks/benefits of the procedure were thoroughly explained to the patient including specific attention to lack of on-site surgical back-up, and the patient is agreed to proceed. Left heart catheterization to follow.
--- NOTE | 2019-01-11 09:59 | CL.D_ITS ---
Patient Name: CYNDY GUNN Study Date: 01/10/2019 Performing: Kristofer Ward MD Ht: 66.14 inches 168 cm : 1945 Wt: 182.98 lbs 83 kg Age: 74 Gender: female BSA: 1.93 PROCEDURE(S) PERFORMED KP25-SHF/COR/LV CLINICAL PROFILE AND INDICATIONS Indications: Stable Known CAD Heart Failure: None Stress/Imaging Date: 06/01/2018Stress Echocardiogram: Negative Angina Classification Anginal Classification w/in 2 Weeks: No symptoms CAD Presentations: No Sxs, no angina. Other: Dyspnea on exertion Comorbidities/Risk Factors: Hypertension Dyslipidemia Prior [place] Prior CHF Prior PCI Diabetes Mellitus: Diabetes Therapy: Oral CONCLUSIONS Normal Left Ventricular systolic function LVEF: by LV gram 75 % Non obstructive coronary arteries Widely patent LAD stents RECOMMENDATIONS Management as per referring Rfid Developer Manual sheath removal Pt's symptoms of fatigue may be related to coumadin. Pt may benefit from switching from coumadin to eliquis. DESCRIPTION OF PROCEDURE The patient arrived to the procedure lab. The risks and benefits of the procedure as well as a full d escription of our services here and current unavailability of surgical backup were fully explained to the patient and/or their significant other prior to the catheterization. The Timeout was completed, verifying the correct patient and procedure. The patient's procedural site was prepped and draped in the usual fashion. Local anesthetic was given subcutaneously to right groin region with Lidocaine 2%. Using a modified Seldinger technique, arterial access was obtained via the right femoral artery, a 4 Fr sheath was inserted Left Coronary Artery selective angiography was performed in multiple views us ing a 4 Fr. JL5 catheter. Right Coronary Artery selective angiography was then performed in multiple views using a 4 Fr. 3DRC catheter. Left Ventriculography was performed in BURTON projection using a 4 Fr . Pigtail catheter. LV to AO pullback pressures were then recorded.The arterial sheath was pulled and manual compression applied until hemostasis is achieved. CORONARY ANGIOGRAPHY DOMINANCE: Right Dominant LEFT HEART ASSESSMENT Left Ventricular Ejection Fraction: by LV Gram 75 % Normal LV wall motion Normal Left Ventricular systolic function LVEDP: 15 mmHg LEFT MAIN: 20 distal % Stenosis LEFT ANTERIOR DESCENDING ARTERY: PROX LAD: Previously placed stent is patent CIRCUMFLEX ARTERY: Non-obstructive MID CIRC: Mild luminal irregularities less than 30% OM 1: Ostial - Mild luminal irregularities less than 30% OM 2: Proximal - Non-obstructive RIGHT CORONARY ARTERY: Non-obstructive PROX RCA: Mild luminal irregularities less than 30% COMPLICATIONS No Complications PROCEDURE MEDICATIONS Nitro 300 mcg IC 01/10/2019 09:38:21 Plavix 75 mg PO 01/10/2019 08:55:06 SUMMARY OF HEMODYNAMIC DATA Time AIR REST ECG 08:34:05 AO 149/51 (83) SA 09:30:29 LV 154/-7, 11 09:36:45 LV 155/-7, 18 09:36:52 LVp 153/0, 17 09:36:56 AOp 152/53 (88) 09:37:01 AO 109/45 (70) 09:38:32 Signed By Kristofer Ward MD On 01/10/2019 09:50:56 rKistofer Ward MD
== END 2019-01-10 14:15 | disposition home or self-care (01) ==
LOC: CLSP 07:53
PROVIDERS: Referring Provider Internal Medicine Cardiovascular Disease; Visit Provider Internal Medicine Cardiovascular Disease
DX: I25.10 Atherosclerotic heart disease of native coronary artery without angina pectoris (principal); I48.0 Paroxysmal atrial fibrillation; E78.5 Hyperlipidemia, unspecified; R53.82 Chronic fatigue, unspecified; Z95.5 Presence of coronary angioplasty implant and graft; I25.2 Old myocardial infarction; Z79.84 Long term (current) use of oral hypoglycemic drugs; Z79.82 Long term (current) use of aspirin; Z79.02 Long term (current) use of antithrombotics/antiplatelets; Z79.01 Long term (current) use of anticoagulants; Z79.899 Other long term (current) drug therapy; G25.0 Essential tremor; E11.9 Type 2 diabetes mellitus without complications; I11.0 Hypertensive heart disease with heart failure; I50.9 Heart failure, unspecified
CPT/HCPCS: 36416; 71046; 80048; 84436; 84443; 85027; 85610; 85730; 93458; J7040; Q9967; C1769; C1894

== ENCOUNTER → 2019-01-17 13:53 | Outpatient (CLI) | payer MEDICARE, BC, SELFPAY ==
[2017-01-31 10:22] VITALS: BMI 29.3
[2019-01-10 08:33] VITALS: BMI 29.0
--- NOTE | 2019-01-17 14:10 | RAD_ITS ---
STUDY: X-RAY CHEST REASON FOR EXAM: Female, 74 years old. Follow-up abnormal chest x-ray. TECHNIQUE: Frontal and lateral views of the chest. COMPARISON: 12/29/2018. FINDINGS: The lungs are clear and expanded. There is no demonstrated pleural abnormality. Normal size heart. Normal mediastinum and pamela. Normal visualized pulmonary arteries. Normal visualized aortic arch and descending thoracic aorta. Normal visualized thoracic spine. Normal visualized ribs, clavicles, and shoulders. There is no demonstrated abnormality of the visualized soft tissue structures of the upper abdomen. RAD/Chest PA and Lateral IMPRESSION: Normal x-ray examination of the chest. Electronically Signed: Mike Lima MD at 18:53 EDT , Service support ,
== END ==
DX: R93.89 Abnormal findings on diagnostic imaging of other specified body structures (principal); I48.0 Paroxysmal atrial fibrillation; Z79.01 Long term (current) use of anticoagulants
CPT/HCPCS: 36415; 71046; 85610

== ENCOUNTER → 2019-02-01 09:31 | Outpatient (CLI) | payer MEDICARE, BC, SELFPAY ==
[2017-01-31 10:22] VITALS: BMI 29.3
[2018-12-21 10:52] VITALS: BMI 29.5
[2019-01-10 08:33] VITALS: BMI 29.0
--- NOTE | 2019-02-01 16:26 | PFTCOMP ---
COMPLETE PULMONARY FUNCTION TEST INTERPRETATION Brief HPI: Patient is a 74 year old female, currently under the care of Dr. Ward, who presents to [facility] for complete pulmonary function tests secondary to diagnosis of high risk med use. Respiratory therapist reports good effort and reproducible results. Interpretation: Forced expiration spirometry shows no large airways obstructive ventilatory defect with an FEV1 of 74% predicted. There is no significant bronchodilator response by strict ATS criteria. Spirograms are of good quality and plateau normally. The respiratory flow volume loop shows a normal pattern. Lung volumes by body plethysmography show a normal total lung capacity at 4.65 L, 90% predicted. FRC and RV are elevated out of proportion. Lung volume measurements are consistent with air-trapping. Diffusion capacity by carbon monoxide is at the lower limit of normal at 60% predicted. The airway resistance is normal. Compared to previous pulmonary function tests from 01/05/2017, there is slight reductions in FVC, FEV1 and DLCO, but these do not reach clinical significance by strict ATS criteria. Impression: Mild obstructive ventilatory defect with a symmetric reduction diffusing capacity.
== END ==
PROVIDERS: Referring Provider Internal Medicine Cardiovascular Disease; Visit Provider Internal Medicine Cardiovascular Disease
DX: Z79.899 Other long term (current) drug therapy (principal)
CPT/HCPCS: 94060; 94726; 94729

== ENCOUNTER 2019-02-15 10:02 | Outpatient (RCR) | payer MEDICARE, BC, SELFPAY ==
[2017-01-31 10:22] VITALS: BMI 29.3
[2019-01-17 14:36] LABS: International Normalized Ratio 1.4
[2019-02-01 11:42] LABS: International Normalized Ratio 2.9; Prothrombin Time (Protime)PT. 30.8 SECONDS (11.7-14.9)
[2019-02-15 11:05] LABS: International Normalized Ratio 3.5
== END 2019-02-15 18:00 | disposition home or self-care (01) ==
LOC: LAB 10:02
PROVIDERS: Referring Provider Internal Medicine Cardiovascular Disease; Visit Provider Internal Medicine Cardiovascular Disease
DX: I48.0 Paroxysmal atrial fibrillation (principal); Z79.01 Long term (current) use of anticoagulants
CPT/HCPCS: 36415; 85610

== ENCOUNTER 2019-03-08 10:35 | Outpatient (RCR) | payer MEDICARE, BC, SELFPAY ==
[2017-01-31 10:22] VITALS: BMI 29.3
[2019-03-08 11:12] LABS: International Normalized Ratio 2.8; Prothrombin Time (Protime)PT. 29.8 SECONDS (11.7-14.9)
== END 2019-03-08 18:00 | disposition home or self-care (01) ==
LOC: LAB 10:35
PROVIDERS: Referring Provider Internal Medicine Cardiovascular Disease; Visit Provider Internal Medicine Cardiovascular Disease
DX: I48.0 Paroxysmal atrial fibrillation (principal); Z79.01 Long term (current) use of anticoagulants
CPT/HCPCS: 36415; 85610

== ENCOUNTER 2019-03-29 11:56 | Outpatient (RCR) | payer MEDICARE, BC, SELFPAY ==
[2017-01-31 10:22] VITALS: BMI 29.3
[2019-03-29 14:20] LABS: International Normalized Ratio 3.1; Prothrombin Time (Protime)PT. 31.7 SECONDS (11.7-14.9)
== END 2019-03-29 18:00 | disposition home or self-care (01) ==
LOC: LAB 11:56
PROVIDERS: Family Provider Family Medicine; PCP Family Medicine; Referring Provider Internal Medicine Cardiovascular Disease; Visit Provider Internal Medicine Cardiovascular Disease
DX: I48.0 Paroxysmal atrial fibrillation (principal); Z79.01 Long term (current) use of anticoagulants
CPT/HCPCS: 36415; 85610

== ENCOUNTER 2019-04-20 10:56 | Outpatient (RCR) | payer MEDICARE, BC, SELFPAY ==
[2017-01-31 10:22] VITALS: BMI 29.3
[2019-04-20 12:02] LABS: International Normalized Ratio 2.3; Prothrombin Time (Protime)PT. 25.2 SECONDS (11.7-14.9)
== END 2019-04-20 18:00 | disposition home or self-care (01) ==
LOC: LAB 10:56
PROVIDERS: Family Provider Family Medicine; PCP Family Medicine; Referring Provider Internal Medicine Cardiovascular Disease; Visit Provider Internal Medicine Cardiovascular Disease
DX: I48.0 Paroxysmal atrial fibrillation (principal); Z79.01 Long term (current) use of anticoagulants
CPT/HCPCS: 36415; 85610

== ENCOUNTER 2019-06-06 14:04 | Outpatient (RCR) | payer MEDICARE, BC, SELFPAY ==
[2017-01-31 10:22] VITALS: BMI 29.3
[2019-05-28 14:32] LABS: Prothrombin Time (Protime)PT. 37.9 SECONDS (11.7-14.9)
[2019-05-28 15:19] LABS: International Normalized Ratio 3.8
[2019-06-06 15:01] LABS: International Normalized Ratio 2.5; Prothrombin Time (Protime)PT. 27.3 SECONDS (11.7-14.9)
== END 2019-06-06 18:00 | disposition home or self-care (01) ==
LOC: MTLAB 14:04
PROVIDERS: Family Provider Family Medicine; PCP Family Medicine; Referring Provider Internal Medicine Cardiovascular Disease; Visit Provider Internal Medicine Cardiovascular Disease
DX: I48.0 Paroxysmal atrial fibrillation (principal); Z79.01 Long term (current) use of anticoagulants
CPT/HCPCS: 36415; 85610

== ENCOUNTER 2019-07-02 13:02 | Outpatient (RCR) | payer MEDICARE, BC, SELFPAY ==
[2017-01-31 10:22] VITALS: BMI 29.3
[2019-07-02 13:57] LABS: Prothrombin Time (Protime)PT. 31.4 SECONDS (11.7-14.9)
== END 2019-07-02 18:00 | disposition home or self-care (01) ==
LOC: LAB 13:02
PROVIDERS: Family Provider Family Medicine; PCP Family Medicine; Referring Provider Internal Medicine Cardiovascular Disease; Visit Provider Internal Medicine Cardiovascular Disease
DX: I48.0 Paroxysmal atrial fibrillation (principal); Z79.01 Long term (current) use of anticoagulants
CPT/HCPCS: 36415; 85610

== ENCOUNTER 2019-07-31 09:45 | Outpatient (RCR) | payer MEDICARE, BC, SELFPAY ==
[2017-01-31 10:22] VITALS: BMI 29.3
[2019-07-12 11:13] VITALS: BMI 25.3
[2019-07-31 10:26] LABS: International Normalized Ratio 2.5; Prothrombin Time (Protime)PT. 26.3 SECONDS (11.7-14.9)
[2019-07-31 10:33] LABS: AST(SGOT) 41 U/L (15-37); Alanine Aminotransfer ALT/SGPT 39 U/L (13-56); Albumin, Serum 3.4 g/dL (3.2-5.0); Alkaline Phosphatase 95 U/L (45-117); Bilirubin, Direct 0.19 mg/dL (0.00-0.30); Cholesterol 148 mg/dL (200); Globulin 3.9 g/dL (2.2-4.2); High Density Lipoprotein 47 mg/dL; Protein, Total 7.3 g/dL (6.4-8.2); Triglycerides 141 mg/dL; Very Low Density Lipoprotein 28 mg/dL (5-40)
== END 2019-08-16 18:00 | disposition home or self-care (01) ==
LOC: LAB 09:45
PROVIDERS: Family Provider Family Medicine; Referring Provider Internal Medicine Cardiovascular Disease; Visit Provider Internal Medicine Cardiovascular Disease
DX: I48.0 Paroxysmal atrial fibrillation (principal); Z79.01 Long term (current) use of anticoagulants; E78.00 Pure hypercholesterolemia, unspecified
CPT/HCPCS: 36415; 80061; 80076; 85610

== ENCOUNTER 2019-10-10 13:00 | Outpatient (RCR) | payer MEDICARE, BC, SELFPAY ==
[2017-01-31 10:22] VITALS: BMI 29.3
[2019-07-12 11:13] VITALS: BMI 25.3
[2019-09-17 11:51] LABS: International Normalized Ratio 1.6; Prothrombin Time (Protime)PT. 18.5 SECONDS (11.7-14.9)
[2019-09-17 12:39] LABS: Thyroid Stim Hormone (TSH) 0.02 uIU/mL (0.358-3.74)
[2019-09-17 13:30] LABS: Hemoglobin A1c 7.1 % (3.8-5.6)
[2019-09-26 11:29] LABS: International Normalized Ratio 1.7; Prothrombin Time (Protime)PT. 19.8 SECONDS (11.7-14.9)
[2019-10-10 13:39] LABS: International Normalized Ratio 2.4; Prothrombin Time (Protime)PT. 25.3 SECONDS (11.7-14.9)
[2019-10-10 13:50] LABS: Hemoglobin A1c 7.3 % (3.8-5.6)
[2019-10-10 13:55] LABS: Thyroid Stim Hormone (TSH) 0.63 uIU/mL (0.358-3.74)
== END 2019-10-10 18:00 | disposition home or self-care (01) ==
LOC: LAB 13:00
PROVIDERS: Family Provider Family Medicine; Referring Provider Internal Medicine Cardiovascular Disease; Visit Provider Internal Medicine Cardiovascular Disease
DX: I48.0 Paroxysmal atrial fibrillation (principal); Z79.01 Long term (current) use of anticoagulants; E11.9 Type 2 diabetes mellitus without complications; E03.9 Hypothyroidism, unspecified
CPT/HCPCS: 36415; 83036; 84443; 85610

== ENCOUNTER 2019-11-12 12:08 | Outpatient (RCR) | payer MEDICARE, BC, SELFPAY ==
[2017-01-31 10:22] VITALS: BMI 29.3
[2019-07-12 11:13] VITALS: BMI 25.3
[2019-11-01 14:05] LABS: International Normalized Ratio 2.3; Prothrombin Time (Protime)PT. 24.8 SECONDS (11.7-14.9)
[2019-11-12 14:10] LABS: International Normalized Ratio 2.3; Prothrombin Time (Protime)PT. 24.5 SECONDS (11.7-14.9)
== END 2019-11-12 18:00 | disposition home or self-care (01) ==
LOC: LAB 12:08
PROVIDERS: Family Provider Family Medicine; PCP Internal Medicine; Referring Provider Internal Medicine Cardiovascular Disease; Visit Provider Internal Medicine Cardiovascular Disease
DX: I48.0 Paroxysmal atrial fibrillation (principal); Z79.01 Long term (current) use of anticoagulants
CPT/HCPCS: 36415; 85610

== ENCOUNTER → 2019-11-29 14:16 | Outpatient (CLI) | payer MEDICARE, BC, SELFPAY ==
[2017-01-31 10:22] VITALS: BMI 29.3
[2019-07-12 11:13] VITALS: BMI 25.3
--- NOTE | 2019-11-29 14:19 | BI_ITS ---
MAMMOGRAPHY - BILATERAL SCREENING REASON FOR EXAM: Female, 74 years old. Routine annual screening examination. PERTINENT HISTORY: Aunt with breast cancer. TECHNIQUE: Digital bilateral breast jerrell (3D mammographic acquisition) in the CC and MLO projections. 2-D mediolateral oblique (MLO) and craniocaudad (CC) views of both breasts were obtained. CAD: Full Field Digital Mammography with Computer Added Detection was performed. COMPARISON: Comparison is made with prior study dated 11/03/2016 and 10/25/2013. FINDINGS: Breast Composition: There are scattered areas of fibroglandular density. There are no dominant masses or suspicious calcifications. No other significant abnormalities are identified. There has been no significant change since the prior study. BI/SCREEN MAMM (CAD) W/JERRELL BILAT IMPRESSION: Stable bilateral screening mammogram. Yearly follow-up mammogram recommended. (A) ASSESSMENT CATEGORY: BIRADS Category 1: Negative. A letter regarding these results will be sent to the patient by the facility within 30 days. Approximately 10% of breast cancers are not detected by mammography. A normal mammogram should not delay biopsy of a clinically suspicious abnormality. [id number] Electronically Signed: Celestine Yo, at 15:28 EDT , Service support ,
--- NOTE | 2019-11-29 14:25 | BD_ITS ---
STUDY: DUAL ENERGY X-RAY ABSORPTIOMETRY / DXA REASON FOR EXAM: Female, 74 years old. TILER'S ASSISTANT -- DIABETIC- ON MEDICATION -- TAKES THYROID MEDICATION -- TAKES DIURETIC IN BP MED -- HX OF TAKING ANTI-SEIZURE MED FOR TREMORS -- DOES MODERATE AMOUNT OF EXERCISE -- LENCHO OF 1 INCH TECHNIQUE: Bone Mineral Density (BMD) measurements of lumbar spine and bilateral hips were obtained. COMPARISON: Comparison is made with prior examination dated 11/03/2016. FINDINGS: Lumbar Spine (L1-L4): g/cm2 (1.218) / T-score (0.3) / Z-score (2.1) Findings are suggestive of normal bone density with a low fracture risk. Left Femur Total: g/cm2 (1.078) / T-score (0.6) / Z-score (2.2) Left Femoral Neck: g/cm2 (1.134) / T-score (0.7) / Z-score (2.6) Right Femur Total: g/cm2 (1.034) / T-score (0.2 ) / Z-score (1.9) Right Femoral Neck: g/cm2 (1.090) / T-score (0.4) / Z-score (2.2) The T-Scores on the most recent prior examination were: Lumbar Spine (L1-L4): There has been worsening of bone density since the previous examination. Left Femur Total: which represents a worsening of 6.9%. Right Femur Total: which represents a worsening of 8.5%. BD/Dexa Bone Density Study IMPRESSION: The patient is considered normal as outlined below according to [employer] (WHO) criteria with a low fracture risk. There has been worsening of bone density since the previous examination. Reference Information: The T-score is the number of standard deviations above or below the standard which is normal for young adults at their peak bone mineral density. The World Health Organization (WHO) interprets the T-scores as follows: Above -1 Normal bone density Between -1 and -2.5 Osteopenia Equal to / or below -2.5 Osteoporosis As a practical clinical guideline, osteopenia may be graded as follows: Mild -1 through -1.5 Moderate -1.6 through -2.0 Severe -2.1 through -2.4 The Z-score is the number of standard deviations above or below age-matched controls. A Z-score of less than -1.5 would be considered abnormal. References: 1. NIH Osteoporosis and Related Bone Diseases http://www.osteo.org 2. International Society for Clinical Densitometry http://www.iscd.org 3. National Osteoporosis Foundation http://www.nof.org Electronically Signed: Celestine Yo, at 8:37 EDT , Service support ,
== END ==
PROVIDERS: PCP Internal Medicine; Referring Provider Internal Medicine; Visit Provider Internal Medicine
DX: Z12.31 Encounter for screening mammogram for malignant neoplasm of breast (principal); Z78.0 Asymptomatic menopausal state; Z80.3 Family history of malignant neoplasm of breast
CPT/HCPCS: 77063; 77067; 77080

== ENCOUNTER 2020-01-18 06:52 | Outpatient (RCR) | payer MEDICARE, BC, SELFPAY ==
[2017-01-31 10:22] VITALS: BMI 29.3
[2019-07-12 11:13] VITALS: BMI 25.3
[2020-01-18 07:00] LABS: Bacteria 0 SEEN /hpf (None Seen); Mucous, Urine 0 SEEN /hpf (<or=2+); Red Blood Cells-Urine 0 SEEN /hpf (0-5); Squamous Epithelial Cells - UA 0 SEEN /hpf (5-10)
[2020-01-18 07:28] LABS: Absolute Lymphocyte Count 2.12 X10^3/uL (0.83-4.51); Absolute Neutrophil Count 3.3 X10^3/uL (2.0-7.7); Basophil# 0.06 X10^3/uL; Basophil% 0.9 % (0-1); Eosinophil# 0.25 X10^3/uL; Eosinophils% 3.9 % (0-5); Hematocrit 45.6 % (37-47); Hemoglobin 13.9 g/dL (12.0-15.0); Lymphocyte # 2.12 X10^3/ul (4.0); Lymphocyte % 32.9 % (19-41); Mean Corp Hgb Conc 30.5 g/dL (32-36); Mean Corpuscular Hgb 24.8 pg (27.0-32.0); Mean Corpuscular Volume 81.4 fL (81-99); Mean Platelet Vol. 10.5 fl (6.2-12.0); Monocyte# 0.68 X10^3/uL; Monocyte% 10.6 % (0-10); NRBC Flagged by Analyzer 0 % (0-5); Neutrophil # 3.27 X10^3/uL (2.7-7.7); Neutrophil % 50.8 % (47-70); Platelet Count 245 K/mm3 (150-450); RBC Distribution Width CV 17.8 % (11.6-14.6); RBC Distribution Width SD 51.3 fl (35.1-43.9); White Blood Count 6.4 K/mm3 (4.4-11.0)
[2020-01-18 07:59] LABS: AST(SGOT) 43 U/L (15-37); Alanine Aminotransfer ALT/SGPT 39 U/L (13-56); Albumin, Serum 3.9 g/dL (3.2-5.0); Alkaline Phosphatase 71 U/L (45-117); Anion Gap 4 (5-15); BUN 20 mg/dL (7-18); BUN/Creat Ratio 17.1 RATIO (10-20); Bilirubin, Direct 0.22 mg/dL (0.00-0.30); Chloride 97 mmol/L (98-107); Cholesterol 165 mg/dL (200); Creatinine, Serum 1.17 mg/dL (0.55-1.02); EST Glomerular Filtration Rate 48 mL/min (>60); Est Glom Filt Rate - Afr Amer 58 mL/min (>60); Globulin 4.1 g/dL (2.2-4.2); Glucose 139 mg/dL (74-106); High Density Lipoprotein 55 mg/dL; Potassium 3.9 mmol/L (3.5-5.1); Sodium Level 134 mmol/L (136-145); Thyroid Stim Hormone (TSH) 3.64 uIU/mL (0.358-3.74); Triglycerides 167 mg/dL; Very Low Density Lipoprotein 33 mg/dL (5-40)
[2020-01-18 08:13] LABS: Color, Urine Yellow (Yellow); Glucose, Dipstick 1000 mg/dl (Normal); Ketone-Dipstick 5 mg/dl (Negative); Leukocyte Esterase-Dipstick 500 /ul (Negative); Nitrite-Dipstick Negative (Negative); Occult Blood-Urine Negative /ul (Negative); Protein-Dipstick Negative (Negative); Specific Gravity, Urine 1.015 (1.002-1.030); Urine Bilirubin Dipstick Negative (Negative); Urine Clarity Clear (Clear); Urine Urobilinogen Normal (Normal)
[2020-01-18 08:13] LABS: International Normalized Ratio 2.9; Prothrombin Time (Protime)PT. 30.3 SECONDS (11.7-14.9)
[2020-01-18 08:17] LABS: White Blood Cells 5-10 SEEN /hpf (0-5)
[2020-01-18 08:34] LABS: Microalbumin,Random Urine 9.1 mg/L (NO RANGE EST.); Microalbumin:Creatinine Ratio 15.4 mg/g CRE (<30 mg/g CRE)
== END 2020-01-18 18:00 | disposition home or self-care (01) ==
LOC: LAB 06:52
PROVIDERS: Internal Medicine Cardiovascular Disease; Family Provider Family Medicine; PCP Internal Medicine; Referring Provider Internal Medicine Cardiovascular Disease; Visit Provider Internal Medicine Cardiovascular Disease
DX: I48.0 Paroxysmal atrial fibrillation (principal); Z79.01 Long term (current) use of anticoagulants; E11.641 Type 2 diabetes mellitus with hypoglycemia with coma
CPT/HCPCS: 36415; 80053; 80061; 81001; 82043; 82248; 82570; 84443; 85025; 85610

== ENCOUNTER 2020-02-27 09:52 | Outpatient (RCR) | payer MEDICARE, BC, SELFPAY ==
[2017-01-31 10:22] VITALS: BMI 29.3
[2019-07-12 11:13] VITALS: BMI 25.3
[2020-02-27 09:05] VITALS: BMI 27.6
[2020-02-27 10:31] LABS: International Normalized Ratio 2.8; Prothrombin Time (Protime)PT. 29.1 SECONDS (11.7-14.9)
== END 2020-02-27 18:00 | disposition home or self-care (01) ==
LOC: LAB 09:52
PROVIDERS: Family Provider Family Medicine; PCP Internal Medicine; Referring Provider Internal Medicine Cardiovascular Disease; Visit Provider Internal Medicine Cardiovascular Disease
DX: I48.0 Paroxysmal atrial fibrillation (principal); Z79.01 Long term (current) use of anticoagulants
CPT/HCPCS: 36415; 85610

== ENCOUNTER → 2020-04-25 12:15 | Outpatient (CLI) | payer MEDICARE, BC, SELFPAY ==
[2017-01-31 10:22] VITALS: BMI 29.3
[2020-04-25 12:41] LABS: International Normalized Ratio 2.4; Prothrombin Time (Protime)PT. 26.1 SECONDS (11.7-14.9)
== END ==
PROVIDERS: PCP Internal Medicine; Referring Provider Internal Medicine; Visit Provider Internal Medicine
DX: Z79.01 Long term (current) use of anticoagulants (principal)
CPT/HCPCS: 85610

== ENCOUNTER 2020-06-16 10:20 | Outpatient (RCR) | payer MEDICARE, BC, SELFPAY ==
[2017-01-31 10:22] VITALS: BMI 29.3
== END 2020-06-16 23:59 ==
LOC: IMMUN 10:20
PROVIDERS: PCP Internal Medicine; Visit Provider Family Medicine
DX: Z23 Encounter for immunization (principal)
CPT/HCPCS: 0011A; 0012A

== ENCOUNTER 2020-07-07 10:02 | Outpatient (RCR) | payer MEDICARE, BC, SELFPAY ==
[2017-01-31 10:22] VITALS: BMI 29.3
[2020-07-07 11:32] LABS: International Normalized Ratio 2.2; Prothrombin Time (Protime)PT. 23.6 SECONDS (11.7-14.9)
== END 2020-07-07 18:00 | disposition home or self-care (01) ==
LOC: LAB 10:02
PROVIDERS: Family Provider Family Medicine; PCP Internal Medicine; Referring Provider Nurse Practitioner Family; Visit Provider Nurse Practitioner Family
DX: I48.0 Paroxysmal atrial fibrillation (principal); Z79.01 Long term (current) use of anticoagulants
CPT/HCPCS: 36415; 85610

== ENCOUNTER 2020-07-29 11:41 | Outpatient (RCR) | payer MEDICARE, BC, SELFPAY ==
[2017-01-31 10:22] VITALS: BMI 29.3
[2020-07-29 13:17] LABS: International Normalized Ratio 2.9; Prothrombin Time (Protime)PT. 29.1 SECONDS (11.7-14.9)
[2020-07-29 14:18] LABS: Hepatitis C Antibody Non-Reactive (Nonreactive)
== END 2020-07-29 18:00 | disposition home or self-care (01) ==
LOC: LAB 11:41
PROVIDERS: Family Provider Family Medicine; PCP Internal Medicine; Referring Provider Nurse Practitioner Family; Visit Provider Nurse Practitioner Family
DX: I48.0 Paroxysmal atrial fibrillation (principal); Z79.01 Long term (current) use of anticoagulants
CPT/HCPCS: 36415; 85610; 86803

== ENCOUNTER 2020-08-26 11:12 | Outpatient (RCR) | payer MEDICARE, BC, SELFPAY ==
[2017-01-31 10:22] VITALS: BMI 29.3
[2020-08-26 12:18] LABS: International Normalized Ratio 2.4; Prothrombin Time (Protime)PT. 25.5 SECONDS (11.7-14.9)
== END 2020-08-26 18:00 | disposition home or self-care (01) ==
LOC: LAB 11:12
PROVIDERS: PCP Internal Medicine; Referring Provider Nurse Practitioner Family; Visit Provider Nurse Practitioner Family
DX: I48.0 Paroxysmal atrial fibrillation (principal); Z79.01 Long term (current) use of anticoagulants
CPT/HCPCS: 36415; 85610

== ENCOUNTER 2020-10-20 08:43 | Outpatient (RCR) | payer MEDICARE, BC, SELFPAY ==
[2017-01-31 10:22] VITALS: BMI 29.3
[2020-08-28 09:29] VITALS: BMI 29.0
[2020-10-20 09:08] LABS: International Normalized Ratio 2.3; Prothrombin Time (Protime)PT. 24.5 SECONDS (11.7-14.9)
== END 2020-10-20 18:00 | disposition home or self-care (01) ==
LOC: LAB 08:43
PROVIDERS: PCP Internal Medicine; Referring Provider Nurse Practitioner Family; Visit Provider Nurse Practitioner Family
DX: I48.0 Paroxysmal atrial fibrillation (principal); Z79.01 Long term (current) use of anticoagulants
CPT/HCPCS: 36415; 85610

== ENCOUNTER → 2020-10-27 09:07 | Outpatient (CLI) | payer MEDICARE, BC, SELFPAY ==
[2017-01-31 10:22] VITALS: BMI 29.3
[2020-08-28 09:29] VITALS: BMI 29.0
[2020-10-27 09:15] LABS: Bacteria 0 SEEN /hpf (None Seen); Mucous, Urine 0 SEEN /hpf (<or=2+); Red Blood Cells-Urine 0 SEEN /hpf (0-5)
[2020-10-27 09:45] LABS: Color, Urine Yellow (Yellow); Glucose, Dipstick 1000 mg/dl (Normal); Ketone-Dipstick Negative (Negative); Leukocyte Esterase-Dipstick 100 /ul (Negative); Nitrite-Dipstick Negative (Negative); Occult Blood-Urine Negative /ul (Negative); Protein-Dipstick 30 mg/dl (Negative); Specific Gravity, Urine 1.025 (1.002-1.030); Urine Bilirubin Dipstick Negative (Negative); Urine Clarity Sl. Cloudy (Clear); Urine Urobilinogen Normal (Normal)
[2020-10-27 09:47] LABS: Absolute Lymphocyte Count 1.89 X10^3/uL (0.83-4.51); Basophil# 0.08 X10^3/uL; Basophil% 1.1 % (0-1); Eosinophil# 0.51 X10^3/uL; Hematocrit 43.9 % (37-47); Hemoglobin 13.2 g/dL (12.0-15.0); Lymphocyte # 1.89 X10^3/ul (0.83-4.51); Lymphocyte % 25.9 % (19-41); Mean Corp Hgb Conc 30.1 g/dL (32-36); Mean Platelet Vol. 10.8 fl (6.2-12.0); Monocyte# 0.72 X10^3/uL; Monocyte% 9.8 % (0-10); NRBC Flagged by Analyzer 0 % (0-5); Neutrophil # 4.03 X10^3/uL (2.7-7.7); Neutrophil % 55.1 % (47-70); Platelet Count 299 K/mm3 (150-450); RBC Distribution Width CV 16.3 % (11.6-14.6); RBC Distribution Width SD 46.5 fl (35.1-43.9); Red Blood Count 5.49 M/mm3 (4.2-5.4); White Blood Count 7.3 K/mm3 (4.4-11.0)
[2020-10-27 09:54] LABS: Squamous Epithelial Cells - UA 0-5 SEEN /hpf (5-10); White Blood Cells 10-25 SEEN /hpf (0-5)
[2020-10-27 10:01] LABS: Microalbumin,Random Urine 11.9 mg/L (NO RANGE EST.)
[2020-10-27 10:23] LABS: ALB/GLOB Ratio 0.8 RATIO (0.9-2.4); AST(SGOT) 47 U/L (15-37); Alanine Aminotransfer ALT/SGPT 42 U/L (13-56); Albumin, Serum 3.6 g/dL (3.2-5.0); Alkaline Phosphatase 67 U/L (45-117); Anion Gap 9 (5-15); BUN 19 mg/dL (7-18); BUN/Creat Ratio 16.7 RATIO (10-20); Calcium,Total 8.8 mg/dL (8.5-10.1); Chloride 101 mmol/L (98-107); Cholesterol 141 mg/dL (200); Creatinine, Serum 1.14 mg/dL (0.55-1.02); EST Glomerular Filtration Rate 49 mL/min (>60); Est Glom Filt Rate - Afr Amer 60 mL/min (>60); Globulin 4.4 g/dL (2.2-4.2); Glucose 118 mg/dL (74-106); High Density Lipoprotein 44 mg/dL; Potassium 4.4 mmol/L (3.5-5.1); Sodium Level 137 mmol/L (136-145); Thyroid Stim Hormone (TSH) 0.27 uIU/mL (0.358-3.74); Triglycerides 153 mg/dL; Very Low Density Lipoprotein 31 mg/dL (5-40)
[2020-10-27 15:37] LABS: Vitamin D,25 Hydroxy 23.3 ng/mL
== END ==
PROVIDERS: PCP Internal Medicine; Referring Provider Internal Medicine; Visit Provider Internal Medicine
DX: E03.9 Hypothyroidism, unspecified (principal); E11.65 Type 2 diabetes mellitus with hyperglycemia; E55.9 Vitamin D deficiency, unspecified
CPT/HCPCS: 36415; 80053; 80061; 81001; 82043; 82306; 82570; 84443; 85025

== ENCOUNTER → 2020-12-01 10:00 | Outpatient (CLI) | payer MEDICARE, BC, SELFPAY ==
[2017-01-31 10:22] VITALS: BMI 29.3
[2020-08-28 09:29] VITALS: BMI 29.0
--- NOTE | 2020-12-01 10:01 | BI_ITS ---
MAMMOGRAPHY - BILATERAL SCREENING REASON FOR EXAM: Female, 75 years old. Routine annual screening examination. PERTINENT HISTORY: Aunt with breast cancer. TECHNIQUE: Digital bilateral breast jerrell (3D mammographic acquisition) in the CC and MLO projections. 2-D mediolateral oblique (MLO) and craniocaudad (CC) views of both breasts were obtained. CAD: Full Field Digital Mammography with Computer Added Detection was performed. COMPARISON: Comparison is made with prior study dated 11/29/2019 and 11/03/2016. FINDINGS: Breast Composition: There are scattered areas of fibroglandular density. There are no dominant masses or suspicious calcifications. No other significant abnormalities are identified. There has been no significant change since the prior study. BI/SCRN MAMM (CAD)W/JRERELL BILAT IMPRESSION: Stable bilateral screening mammogram. Yearly follow-up mammogram recommended. (A) ASSESSMENT CATEGORY: BIRADS Category 1: Negative. A letter regarding these results will be sent to the patient by the facility within 30 days. Approximately 10% of breast cancers are not detected by mammography. A normal mammogram should not delay biopsy of a clinically suspicious abnormality. [id number] Electronically Signed: Celestine Yo MD at 11:08 EDT , Service support ,
== END ==
PROVIDERS: PCP Internal Medicine; Referring Provider Internal Medicine; Visit Provider Internal Medicine
DX: Z12.31 Encounter for screening mammogram for malignant neoplasm of breast (principal)
CPT/HCPCS: 77063; 77067

== ENCOUNTER 2021-01-27 08:23 | Outpatient (RCR) | payer MEDICARE, BC, SELFPAY ==
[2017-01-31 10:22] VITALS: BMI 29.3
[2020-08-28 09:29] VITALS: BMI 29.0
[2021-01-27 09:26] LABS: International Normalized Ratio 2.1; Prothrombin Time (Protime)PT. 22.7 SECONDS (11.7-14.9)
== END 2021-02-15 02:42 | disposition home or self-care (01) ==
LOC: LAB 08:23
PROVIDERS: PCP Internal Medicine; Referring Provider Nurse Practitioner Family; Visit Provider Nurse Practitioner Family
DX: I48.0 Paroxysmal atrial fibrillation (principal); Z79.01 Long term (current) use of anticoagulants
CPT/HCPCS: 36415; 85610

== ENCOUNTER → 2021-04-01 11:59 | Outpatient (CLI) | payer MEDICARE, BC, SELFPAY ==
[2017-01-31 10:22] VITALS: BMI 29.3
--- NOTE | 2021-04-01 12:05 | RAD_ITS ---
STUDY: X-RAY CHEST REASON FOR EXAM: Female, 76 years old. ABNORMAL LUNG SOUNDS TECHNIQUE: PA and lateral views of the chest. COMPARISON: Comparison is made with prior study 01/17/2019. FINDINGS: The lungs are clear and expanded. There is no demonstrated pleural abnormality. Normal size heart. Normal mediastinum and pamela. Normal visualized pulmonary arteries. There is atherosclerotic calcification of the aortic arch with tortuosity. There are diffuse degenerative changes of the visualized thoracic spine. Normal visualized ribs, clavicles, and shoulders. There is no demonstrated abnormality of the visualized soft tissue structures of the upper abdomen. RAD/Chest PA and Lateral IMPRESSION: No acute abnormality is seen. Electronically Signed: Celestine Yo MD at 13:05 EST , Service support ,
== END ==
PROVIDERS: PCP Internal Medicine; Referring Provider Internal Medicine; Visit Provider Internal Medicine
DX: R09.89 Other specified symptoms and signs involving the circulatory and respiratory systems (principal)
CPT/HCPCS: 71046

== ENCOUNTER 2021-05-08 09:43 | Outpatient (RCR) | payer MEDICARE, BC, SELFPAY ==
[2017-01-31 10:22] VITALS: BMI 29.3
[2021-02-15 02:42] VITALS: BMI 29.0
[2021-05-08 11:22] LABS: AST(SGOT) 44 U/L (15-37); Alanine Aminotransfer ALT/SGPT 45 U/L (13-56); Albumin, Serum 3.5 g/dL (3.2-5.0); Alkaline Phosphatase 76 U/L (45-117); Bilirubin, Direct 0.22 mg/dL (0.00-0.30); Cholesterol 135 mg/dL (200); Globulin 4.1 g/dL (2.2-4.2); High Density Lipoprotein 47 mg/dL; Protein, Total 7.6 g/dL (6.4-8.2); Triglycerides 167 mg/dL; Very Low Density Lipoprotein 33 mg/dL (5-40)
[2021-05-08 11:24] LABS: International Normalized Ratio 2.2; Prothrombin Time (Protime)PT. 23.8 SECONDS (11.7-14.9)
== END 2021-05-18 18:00 | disposition home or self-care (01) ==
LOC: LAB 09:43
PROVIDERS: Internal Medicine Cardiovascular Disease; PCP Internal Medicine; Referring Provider Nurse Practitioner Family; Visit Provider Nurse Practitioner Family
DX: E78.00 Pure hypercholesterolemia, unspecified (principal); I48.0 Paroxysmal atrial fibrillation; Z79.01 Long term (current) use of anticoagulants
CPT/HCPCS: 36415; 80061; 80076; 85610

== ENCOUNTER 2021-05-20 10:45 | Outpatient (RCR) | payer SELFPAY ==
[2017-01-31 10:22] VITALS: BMI 29.3
--- NOTE | 2017-09-23 12:15 | DT_ITS ---
This patient was seen during an EMR downtime September 19, 2017 - September 26, 2017. This patient may have a combination of paper and electronic documentation or all paper documentation. All documentation is viewable within the e-chart portion of [employer] for each patient visit.
== END 2021-05-20 19:00 | disposition home or self-care (01) ==
LOC: MASS 10:45
PROVIDERS: Family Provider Family Medicine; PCP Family Medicine
DX: Z00.00 Encounter for general adult medical examination without abnormal findings (principal)

== ENCOUNTER 2021-09-07 09:58 | Outpatient (RCR) | payer MEDICARE, BC, SELFPAY ==
[2017-01-31 10:22] VITALS: BMI 29.3
[2021-05-18 22:02] VITALS: BMI 29.0
[2021-09-07 12:37] LABS: International Normalized Ratio 2.1; Prothrombin Time (Protime)PT. 23.6 SECONDS (11.7-14.9)
== END 2021-09-07 18:00 | disposition home or self-care (01) ==
LOC: MTLAB 09:58
PROVIDERS: PCP Internal Medicine; Referring Provider Nurse Practitioner Family; Visit Provider Nurse Practitioner Family
DX: I48.0 Paroxysmal atrial fibrillation (principal); Z79.01 Long term (current) use of anticoagulants
CPT/HCPCS: 36415; 85610

== ENCOUNTER 2021-10-16 11:18 | Outpatient (RCR) | payer MEDICARE, BC, SELFPAY ==
[2017-01-31 10:22] VITALS: BMI 29.3
[2021-09-15 21:42] VITALS: BMI 29.0
[2021-10-16 12:42] LABS: International Normalized Ratio 1.7
== END 2021-11-15 03:23 | disposition home or self-care (01) ==
LOC: MTLAB 11:18
PROVIDERS: PCP Internal Medicine; Referring Provider Nurse Practitioner Family; Visit Provider Nurse Practitioner Family
DX: I48.0 Paroxysmal atrial fibrillation (principal); Z79.01 Long term (current) use of anticoagulants
CPT/HCPCS: 36415; 85610

== ENCOUNTER → 2021-11-30 | Outpatient (CLI) | payer MEDICARE, BC, SELFPAY ==
[2017-01-31 10:22] VITALS: BMI 29.3
--- NOTE | 2021-11-30 07:43 | MRI_ITS ---
STUDY: MRI BRAIN WITH AND WITHOUT CONTRAST REASON FOR EXAM: Female, 76 years old. Mild Cognitive Impairment, L hand tremors TECHNIQUE: Standardized multiplanar fat and water weighted pulse sequences were obtained. IV 15 cc clariscan was administered for the contrast portion of the examination. COMPARISON: None. FINDINGS: Normal size of the ventricles and extra-axial spaces for the patient''s age. Normal T2* images of the brain without demonstrated susceptibility artifact. There is no demonstrated hemosiderin stain. There is no evidence for recent intracranial ischemia or other cause of cytotoxic edema on diffusion weighted imaging (DWI). 3 mm high T2 and FLAIR signal focus in the left parietal lobe, deep periventricular white matter without restricted diffusion. There is otherwise normal signal seen throughout the brain with no significant chronic small vessel ischemic changes particularly seen in elderly patients. Normal bilateral basal ganglia. Normal thalami. There is no extra-axial fluid accumulation. Normal flow voids within the major intracranial circulation suggesting patency by spin echo criteria. Normal dural and vascular enhancement. There is no enhancing intra-axial or extra-axial abnormality. Normal sella turcica, pituitary gland, infundibular stalk, optic chiasm and hypothalamus. Normal tectal plate and pineal gland. Normal midbrain, karen and medulla. Normal cerebellum. Normal basal cisterns. Normal bilateral temporal bones. Normal bilateral internal auditory canals. Normal visualized paranasal sinuses. Normal calvarium and skull base. Normal visualized upper cervical spine. MRI/Brain W/WO Contrast IMPRESSION: Single, nonspecific, 3 mm T2 and FLAIR bright focus left parietal lobe periventricular white matter without restricted diffusion and no associated enhancement with otherwise normal signal throughout the brain. This is within normal limits for patient''s age. Electronically Signed: Bruce Irving DO at 0:03 EDT ,
[2021-11-30 08:56] LABS: CREATININE FINGERSTICK 0.9 mg/dL (0.55-1.02); EGFR FINGERSTICK > 60.0000 mL/min (>60)
== END | disposition home or self-care (01) ==
LOC: MRI 07:43
PROVIDERS: PCP Internal Medicine; Referring Provider Psychiatry & Neurology Neurology; Visit Provider Psychiatry & Neurology Neurology
DX: G31.84 Mild cognitive impairment of uncertain or unknown etiology (principal)
CPT/HCPCS: 70553; A9575

== ENCOUNTER 2021-12-07 09:24 | Outpatient (RCR) | payer MEDICARE, BC, SELFPAY ==
[2017-01-31 10:22] VITALS: BMI 29.3
[2021-11-15 03:23] VITALS: BMI 29.0
[2021-11-16 10:09] LABS: Prothrombin Time (Protime)PT. 22.4 SECONDS (11.7-14.9)
[2021-12-07 09:58] LABS: Hematocrit 42.5 % (37-47); Hemoglobin 12.7 g/dL (12.0-15.0); Mean Corp Hgb Conc 29.9 g/dL (32-36); Mean Corpuscular Hgb 22.5 pg (27.0-32.0); Mean Corpuscular Volume 75.4 fL (81-99); Mean Platelet Vol. 10.7 fl (6.2-12.0); Platelet Count 258 K/mm3 (150-450); RBC Distribution Width CV 19.3 % (11.6-14.6); RBC Distribution Width SD 50.4 fl (35.1-43.9); Red Blood Count 5.64 M/mm3 (4.2-5.4); White Blood Count 8.4 K/mm3 (4.4-11.0)
[2021-12-07 10:08] LABS: International Normalized Ratio 1.8; Prothrombin Time (Protime)PT. 20.9 SECONDS (11.7-14.9)
[2021-12-07 10:21] LABS: Vitamin B12 239 pg/mL (211-911)
[2021-12-07 11:00] LABS: ALB/GLOB Ratio 0.9 RATIO (0.9-2.4); AST(SGOT) 67 U/L (15-37); Alanine Aminotransfer ALT/SGPT 59 U/L (13-56); Albumin, Serum 3.7 g/dL (3.2-5.0); Alkaline Phosphatase 64 U/L (45-117); Anion Gap 7 (5-15); BUN 15 mg/dL (7-18); BUN/Creat Ratio 12.3 RATIO (10-20); Calcium,Total 9.1 mg/dL (8.5-10.1); Chloride 102 mmol/L (98-107); Cholesterol 165 mg/dL (200); Creatinine, Serum 1.22 mg/dL (0.55-1.02); EST Glomerular Filtration Rate 46 mL/min (>60); Est Glom Filt Rate - Afr Amer 55 mL/min (>60); Glucose 122 mg/dL (74-106); High Density Lipoprotein 49 mg/dL; Potassium 4.6 mmol/L (3.5-5.1); Protein, Total 7.7 g/dL (6.4-8.2); Sodium Level 136 mmol/L (136-145); T4 Free Direct 1.64 ng/dL (0.76-1.46); Thyroid Stim Hormone (TSH) 2.79 uIU/mL (0.358-3.74); Triglycerides 180 mg/dL; Very Low Density Lipoprotein 36 mg/dL (5-40)
[2021-12-11 14:09] LABS: Free Kappa Light Chains 41.2 mg/L (3.3-19.4); Free Lambda Light Chains 26.1 mg/L (5.7-26.3)
[2021-12-11 17:02] LABS: Vitamin B1, Thiamine 129.6 nmol/L (66.5-200.0)
== END 2021-12-07 18:00 | disposition home or self-care (01) ==
LOC: LAB 09:24
PROVIDERS: Psychiatry & Neurology Neurology; PCP Internal Medicine; Referring Provider Nurse Practitioner Family; Visit Provider Nurse Practitioner Family
DX: I48.0 Paroxysmal atrial fibrillation (principal); Z79.01 Long term (current) use of anticoagulants; E78.5 Hyperlipidemia, unspecified; G25.0 Essential tremor; G62.9 Polyneuropathy, unspecified
CPT/HCPCS: 36415; 80053; 80061; 82607; 82746; 83883; 84425; 84439; 84443; 85027; 85610

== ENCOUNTER → 2021-12-08 | Outpatient (CLI) | payer MEDICARE, BC, SELFPAY ==
[2017-01-31 10:22] VITALS: BMI 29.3
--- NOTE | 2021-12-08 09:57 | BI_ITS ---
MAMMOGRAPHY - BILATERAL SCREENING REASON FOR EXAM: Female, 76 years old. Routine annual screening examination. PERTINENT HISTORY: Aunt with breast cancer. TECHNIQUE: Digital bilateral breast jerrell (3D mammographic acquisition) in the CC and MLO projections. 2-D mediolateral oblique (MLO) and craniocaudad (CC) views of both breasts were obtained. CAD: Full Field Digital Mammography with Computer Added Detection was performed. COMPARISON: Comparison is made with prior study dated 12/01/2020 and 11/29/2019. FINDINGS: Breast Composition: There are scattered areas of fibroglandular density. There are no dominant masses or suspicious calcifications. No other significant abnormalities are identified. There has been no significant change since the prior study. BI/SCRN MAMM (CAD)W/JERRELL BILAT IMPRESSION: Stable bilateral screening mammogram. Yearly follow-up mammogram recommended. (A) ASSESSMENT CATEGORY: BIRADS Category 1: Negative. A letter regarding these results will be sent to the patient by the facility within 30 days. Approximately 10% of breast cancers are not detected by mammography. A normal mammogram should not delay biopsy of a clinically suspicious abnormality. [id number] Electronically Signed: Celestine Yo MD at 10:57 EDT ,
--- NOTE | 2021-12-08 10:08 | BD_ITS ---
STUDY: DUAL ENERGY X-RAY ABSORPTIOMETRY / DXA REASON FOR EXAM: Female, 76 years old. [id number]. Patient is postmenopausal. TECHNIQUE: Bone Mineral Density (BMD) measurements of lumbar spine and bilateral hips were obtained. COMPARISON: Comparison is made with prior study dated 11/29/2019 FINDINGS: Lumbar Spine (L1-L4): g/cm2 (1.046) / T-score (-0.1) / Z-score (2.4) Findings are suggestive of normal bone density with a low fracture risk. Left Femur Total: g/cm2 (1.002) / T-score (0.5) / Z-score (2.3) Left Femoral Neck: g/cm2 (0.848) / T-score (0.0) / Z-score (2.1) Right Femur Total: g/cm2 (0.946) / T-score (0.0) / Z-score (1.9) Right Femoral Neck: g/cm2 (0.854) / T-score (0.0) / Z-score (2.2) The T-Scores on the most recent prior examination were: Lumbar Spine (L1-L4): There has been worsening of bone density since the previous examination. Left Femur Total: which represents a worsening of 0.8%. Right Femur Total: which represents a worsening of 2.2%. BD/Dexa Bone Density Study IMPRESSION: The patient is considered normal as outlined below according to [employer] (WHO) criteria with a low fracture risk. There has been worsening of bone density since the previous examination. Reference Information: The T-score is the number of standard deviations above or below the standard which is normal for young adults at their peak bone mineral density. The World Health Organization (WHO) interprets the T-scores as follows: Above -1 Normal bone density Between -1 and -2.5 Osteopenia Equal to / or below -2.5 Osteoporosis As a practical clinical guideline, osteopenia may be graded as follows: Mild -1 through -1.5 Moderate -1.6 through -2.0 Severe -2.1 through -2.4 The Z-score is the number of standard deviations above or below age-matched controls. A Z-score of less than -1.5 would be considered abnormal. References: 1. NIH Osteoporosis and Related Bone Diseases www osteo.org 2. International Society for Clinical Densitometry www iscd.org 3. National Osteoporosis Foundation www nof.org Electronically Signed: Celestine Yo MD at 15:43 EDT ,
== END | disposition home or self-care (01) ==
LOC: OPBD 09:55
PROVIDERS: PCP Internal Medicine; Visit Provider Internal Medicine
DX: Z12.31 Encounter for screening mammogram for malignant neoplasm of breast (principal); Z78.0 Asymptomatic menopausal state; Z80.3 Family history of malignant neoplasm of breast
CPT/HCPCS: 77063; 77067; 77080

== ENCOUNTER 2022-01-15 12:31 | Outpatient (RCR) | payer MEDICARE, BC, SELFPAY ==
[2017-01-31 10:22] VITALS: BMI 29.3
[2021-12-16 22:02] VITALS: BMI 29.0
[2022-01-15 13:50] LABS: International Normalized Ratio 2.7; Prothrombin Time (Protime)PT. 28.7 SECONDS (11.7-14.9)
== END 2022-01-15 18:00 | disposition home or self-care (01) ==
LOC: LAB 12:31
PROVIDERS: PCP Internal Medicine; Referring Provider Nurse Practitioner Family; Visit Provider Nurse Practitioner Family
DX: I48.0 Paroxysmal atrial fibrillation (principal); Z79.01 Long term (current) use of anticoagulants
CPT/HCPCS: 36415; 85610

== ENCOUNTER → 2022-01-20 | Outpatient (CLI) | payer MEDICARE, BC, SELFPAY ==
[2017-01-31 10:22] VITALS: BMI 29.3
--- NOTE | 2022-01-20 08:35 | RAD_ITS ---
STUDY: X-RAY - ESOPHAGUS (BARIUM SWALLOW) WITH FLUOROSCOPY REASON FOR EXAM: Female, 77 years old. Dysphagia TECHNIQUE: 16 view(s) of the esophagus were obtained following swallowing of barium. FLUOROSCOPY TIME (if supplied): (30 seconds) minutes/seconds COMPARISON: None. FINDINGS: There is no demonstrated esophageal foreign body. There is no demonstrated stricture or mucosal abnormality. Normal gastroesophageal junction, without a demonstrated hiatal hernia. The patient ingest a 12 mm tablet of barium without any difficulty. Normal visualized aortic arch and descending thoracic aorta. Normal visualized pulmonary parenchyma. Normal visualized osseous structures of the thorax. RAD/Esophagus Dual Contrast IMPRESSION: Normal plain film x-ray examination (barium swallow) of the esophagus. Electronically Signed: Celestine Yo MD at 14:59 EDT ,
== END | disposition home or self-care (01) ==
LOC: RAD 08:23
PROVIDERS: PCP Internal Medicine; Visit Provider Internal Medicine
DX: R13.10 Dysphagia, unspecified (principal)
CPT/HCPCS: 74221

== ENCOUNTER → 2022-02-10 | Outpatient (CLI) | payer MEDICARE, BC, SELFPAY ==
[2017-01-31 10:22] VITALS: BMI 29.3
[2022-02-10 18:32] LABS: T4 Free Direct 1.66 ng/dL (0.76-1.46); Thyroid Stim Hormone (TSH) 2.27 uIU/mL (0.358-3.74)
== END | disposition home or self-care (01) ==
LOC: MTLAB 16:58
PROVIDERS: PCP Internal Medicine; Referring Provider Psychiatry & Neurology Neurology; Visit Provider Psychiatry & Neurology Neurology
DX: E03.9 Hypothyroidism, unspecified (principal)
CPT/HCPCS: 36415; 84439; 84443

== ENCOUNTER → 2022-03-08 | Outpatient (CLI) | payer MEDICARE, BC, SELFPAY ==
[2017-01-31 10:22] VITALS: BMI 29.3
[2022-03-08 18:27] LABS: ALB/GLOB Ratio 0.9 RATIO (0.9-2.4); AST(SGOT) 48 U/L (15-37); Alanine Aminotransfer ALT/SGPT 47 U/L (13-56); Albumin, Serum 3.7 g/dL (3.2-5.0); Alkaline Phosphatase 70 U/L (45-117); Anion Gap 8 (5-15); BUN 24 mg/dL (7-18); BUN/Creat Ratio 17.5 RATIO (10-20); Calcium,Total 9.1 mg/dL (8.5-10.1); Chloride 98 mmol/L (98-107); Creatinine, Serum 1.37 mg/dL (0.55-1.02); EST Glomerular Filtration Rate 40 mL/min (>60); Est Glom Filt Rate - Afr Amer 48 mL/min (>60); Glucose 104 mg/dL (74-106); Potassium 3.7 mmol/L (3.5-5.1); Protein, Total 7.7 g/dL (6.4-8.2); Sodium Level 137 mmol/L (136-145)
[2022-03-11 20:43] LABS: Vitamin D 1,25-Dihydroxy 47.1 pg/mL (24.8-81.5)
[2022-03-12 09:07] LABS: Albumin 3.8 g/dL (2.9-4.4); Alpha-1-Globulins 0.2 g/dL (0.0-0.4); Gamma Globulin 1.1 g/dL (0.4-1.8); Immunoglobulin A 256 mg/dL (64-422); Immunoglobulin G 1104 mg/dL (586-1602); Immunoglobulin M 84 mg/dL (26-217); PROEL- TOTAL PROTEIN 7.3 g/dL (6.0-8.5)
== END | disposition home or self-care (01) ==
LOC: MTLAB 14:41
PROVIDERS: PCP Internal Medicine; Referring Provider Psychiatry & Neurology Neurology; Visit Provider Psychiatry & Neurology Neurology
DX: E55.9 Vitamin D deficiency, unspecified (principal); G62.9 Polyneuropathy, unspecified
CPT/HCPCS: 36415; 80053; 82652; 82784; 84165; 86334; 86335

== ENCOUNTER 2022-04-05 10:50 | Outpatient (RCR) | payer MEDICARE, BC, SELFPAY ==
[2017-01-31 10:22] VITALS: BMI 29.3
[2022-01-15 19:17] VITALS: BMI 29.0
[2022-04-05 12:13] LABS: International Normalized Ratio 2.3; Prothrombin Time (Protime)PT. 25.3 SECONDS (11.7-14.9)
== END 2022-04-05 18:00 | disposition home or self-care (01) ==
LOC: LAB 10:50
PROVIDERS: PCP Internal Medicine; Referring Provider Nurse Practitioner Family; Visit Provider Nurse Practitioner Family
DX: I48.0 Paroxysmal atrial fibrillation (principal); Z79.01 Long term (current) use of anticoagulants
CPT/HCPCS: 36415; 85610

== ENCOUNTER 2022-06-11 10:31 | Outpatient (RCR) | payer MEDICARE, BC, SELFPAY ==
[2017-01-31 10:22] VITALS: BMI 29.3
[2022-04-17 22:27] VITALS: BMI 29.0
[2022-06-11 12:05] LABS: International Normalized Ratio 2.5; Prothrombin Time (Protime)PT. 26.4 SECONDS (11.7-14.9)
== END 2022-06-11 18:00 | disposition home or self-care (01) ==
LOC: LAB 10:31
PROVIDERS: PCP Internal Medicine; Referring Provider Nurse Practitioner Family; Visit Provider Nurse Practitioner Family
DX: I48.0 Paroxysmal atrial fibrillation (principal); Z79.01 Long term (current) use of anticoagulants
CPT/HCPCS: 36415; 85610

== ENCOUNTER 2022-10-15 10:56 | Outpatient (RCR) | payer MEDICARE, BC, SELFPAY ==
[2017-01-31 10:22] VITALS: BMI 29.3
[2022-06-15 19:40] VITALS: BMI 29.0
[2022-10-15 12:01] LABS: International Normalized Ratio 3.2; Prothrombin Time (Protime)PT. 33.5 SECONDS (11.7-14.9)
== END 2022-10-15 18:00 | disposition home or self-care (01) ==
LOC: LAB 10:56
PROVIDERS: Internal Medicine Cardiovascular Disease; PCP Internal Medicine; Referring Provider Nurse Practitioner Family; Visit Provider Nurse Practitioner Family
DX: I48.0 Paroxysmal atrial fibrillation (principal); Z79.01 Long term (current) use of anticoagulants
CPT/HCPCS: 36415; 85610

== ENCOUNTER 2022-11-12 10:48 | Outpatient (RCR) | payer MEDICARE, BC, SELFPAY ==
[2017-01-31 10:22] VITALS: BMI 29.3
[2022-10-15 20:37] VITALS: BMI 29.0
[2022-11-05 11:32] LABS: Prothrombin Time (Protime)PT. 46.2 SECONDS (11.7-14.9)
[2022-11-05 11:39] LABS: International Normalized Ratio 4.8
[2022-11-12 11:33] LABS: International Normalized Ratio 1.8; Prothrombin Time (Protime)PT. 21.2 SECONDS (11.7-14.9)
== END 2022-11-15 23:27 | disposition home or self-care (01) ==
LOC: LAB 10:48
PROVIDERS: PCP Internal Medicine; Referring Provider Nurse Practitioner Family; Visit Provider Nurse Practitioner Family
DX: I48.0 Paroxysmal atrial fibrillation (principal); Z79.01 Long term (current) use of anticoagulants
CPT/HCPCS: 36415; 85610

== ENCOUNTER 2022-12-10 10:46 | Outpatient (RCR) | payer MEDICARE, BC, SELFPAY ==
[2017-01-31 10:22] VITALS: BMI 29.3
[2022-11-15 23:27] VITALS: BMI 29.0
[2022-11-19 15:10] LABS: International Normalized Ratio 1.3; Prothrombin Time (Protime)PT. 15.9 SECONDS (11.7-14.9)
[2022-11-26 11:43] LABS: International Normalized Ratio 1.6; Prothrombin Time (Protime)PT. 19.5 SECONDS (11.7-14.9)
[2022-12-10 11:17] LABS: International Normalized Ratio 1.6; Prothrombin Time (Protime)PT. 19.5 SECONDS (11.7-14.9)
== END 2022-12-10 18:00 | disposition home or self-care (01) ==
LOC: LAB 10:46
PROVIDERS: PCP Internal Medicine; Referring Provider Nurse Practitioner Family; Visit Provider Nurse Practitioner Family
DX: I48.0 Paroxysmal atrial fibrillation (principal); Z79.01 Long term (current) use of anticoagulants
CPT/HCPCS: 36415; 85610

== ENCOUNTER → 2022-12-13 | Outpatient (CLI) | payer MEDICARE, BC, SELFPAY ==
[2017-01-31 10:22] VITALS: BMI 29.3
--- NOTE | 2022-12-13 09:43 | BI_ITS ---
MAMMOGRAPHY - BILATERAL SCREENING REASON FOR EXAM: Female, 77 years old. Routine annual screening examination. PERTINENT HISTORY: Aunt with breast cancer. TECHNIQUE: Digital bilateral breast jerrell (3D mammographic acquisition) in the CC and MLO projections. 2-D mediolateral oblique (MLO) and craniocaudad (CC) views of both breasts were obtained. CAD: Full Field Digital Mammography with Computer Added Detection was performed. COMPARISON: Comparison is made with prior study December 08, 2021 and December 01, 2020. FINDINGS: Breast Composition: There are scattered areas of fibroglandular density. There are no dominant masses or suspicious calcifications. No other significant abnormalities are identified. There has been no significant change since the prior study. BI/SCRN MAMM (CAD)W/JERRELL BILAT IMPRESSION: Stable bilateral screening mammogram. Yearly follow-up mammogram recommended. (A) ASSESSMENT CATEGORY: BIRADS Category 1: Negative. A letter regarding these results will be sent to the patient by the facility within 30 days. Approximately 10% of breast cancers are not detected by mammography. A normal mammogram should not delay biopsy of a clinically suspicious abnormality. [id number] Electronically Signed: Celestine Yo MD at 13:04 EDT ,
== END | disposition home or self-care (01) ==
LOC: OPBD 09:42
PROVIDERS: PCP Internal Medicine; Referring Provider Internal Medicine; Visit Provider Internal Medicine
DX: Z12.31 Encounter for screening mammogram for malignant neoplasm of breast (principal); Z80.3 Family history of malignant neoplasm of breast
CPT/HCPCS: 77063; 77067

== ENCOUNTER 2023-01-14 13:04 | Outpatient (RCR) | payer MEDICARE, BC, SELFPAY ==
[2017-01-31 10:22] VITALS: BMI 29.3
[2022-12-16 21:31] VITALS: BMI 29.0
[2022-12-24 11:20] LABS: International Normalized Ratio 2.2; Prothrombin Time (Protime)PT. 24.5 SECONDS (11.7-14.9)
[2023-01-10 09:21] LABS: International Normalized Ratio 3.9; Prothrombin Time (Protime)PT. 38.9 SECONDS (11.7-14.9)
[2023-01-14 15:14] LABS: International Normalized Ratio 2.4; Prothrombin Time (Protime)PT. 26.7 SECONDS (11.7-14.9)
== END 2023-01-14 18:00 | disposition home or self-care (01) ==
LOC: LAB 13:04
PROVIDERS: PCP Internal Medicine; Referring Provider Nurse Practitioner Family; Visit Provider Nurse Practitioner Family
DX: I48.0 Paroxysmal atrial fibrillation (principal); Z79.01 Long term (current) use of anticoagulants
CPT/HCPCS: 36415; 85610

== ENCOUNTER 2023-01-21 09:38 | Outpatient (RCR) | payer MEDICARE, BC, SELFPAY ==
[2017-01-31 10:22] VITALS: BMI 29.3
[2023-01-16 00:01] VITALS: BMI 29.0
[2023-01-21 10:28] LABS: International Normalized Ratio 2.2; Prothrombin Time (Protime)PT. 24.3 SECONDS (11.7-14.9)
== END 2023-01-21 18:00 | disposition home or self-care (01) ==
LOC: LAB 09:38
PROVIDERS: PCP Internal Medicine; Referring Provider Nurse Practitioner Family; Visit Provider Nurse Practitioner Family
DX: I48.0 Paroxysmal atrial fibrillation (principal); Z79.01 Long term (current) use of anticoagulants
CPT/HCPCS: 36415; 85610

== ENCOUNTER 2023-03-14 13:24 | Outpatient (RCR) | payer MEDICARE, BC, SELFPAY ==
[2017-01-31 10:22] VITALS: BMI 29.3
[2023-02-15 22:30] VITALS: BMI 29.0
[2023-02-18 11:36] LABS: International Normalized Ratio 2.8; Prothrombin Time (Protime)PT. 29.7 SECONDS (11.7-14.9)
[2023-03-14 14:52] LABS: International Normalized Ratio 2.3; Prothrombin Time (Protime)PT. 25.5 SECONDS (11.7-14.9)
== END 2023-03-17 18:00 | disposition home or self-care (01) ==
LOC: LAB 13:24
PROVIDERS: Internal Medicine Cardiovascular Disease; PCP Internal Medicine; Referring Provider Nurse Practitioner Family; Visit Provider Nurse Practitioner Family
DX: I48.0 Paroxysmal atrial fibrillation (principal); Z79.01 Long term (current) use of anticoagulants
CPT/HCPCS: 36415; 85610

== ENCOUNTER 2023-04-15 11:27 | Outpatient (RCR) | payer MEDICARE, BC, SELFPAY ==
[2017-01-31 10:22] VITALS: BMI 29.3
[2023-03-18 02:45] VITALS: BMI 29.0
[2023-04-15 12:16] LABS: International Normalized Ratio 2.4; Prothrombin Time (Protime)PT. 26.8 SECONDS (11.7-14.9)
== END 2023-04-17 18:00 | disposition home or self-care (01) ==
LOC: LAB 11:27
PROVIDERS: PCP Internal Medicine; Referring Provider Nurse Practitioner Family; Visit Provider Nurse Practitioner Family
DX: I48.0 Paroxysmal atrial fibrillation (principal); Z79.01 Long term (current) use of anticoagulants
CPT/HCPCS: 36415; 85610

== ENCOUNTER 2023-04-15 13:30 | Outpatient (RCR) | payer MEDICARE, BC, SELFPAY ==
[2017-01-31 10:22] VITALS: BMI 29.3
--- NOTE | 2023-03-21 14:10 | HP.PTEVAL_ITS ---
Patient's Visit Information Visit Information Visit Information: CYNDY GUNN is a 78 year old F referred to Physical Therapy by ZENY Cardoza with a diagnosis of RIGHT HIP PAIN. Date of Evaluation: 03/21/23 Physical Therapist: Francisco Keller PT, Cert MDT, OCS Visit Plan Frequency: 2x /Week Duration: 4 Weeks Plan: PT INTERVTIONS ROM/STRETCHING HIP ,MANUAL THERAPY STICK /STRERCHING /LONG AXIS DISTRCATION ,STRENGTHENING HIP AND FUNCTIONAL STRENGTHENING Subjective Subjective: This 78 y/o female presents to physical with right hip and groin pain ~ 1week. Seen Dr LAL and tried injection only helped on day. No medication or x-rays. Pain location anterior hip and groin. Aggravating hip flexion ,stairs ,bending hip , squatting twisting and kneeling . Alleviating factors rest. Pain describes pain ache at night. Patient denies parestehesia/tingling. Patient has no injury or falling or mechanism of pain ,just insidious onset. Patient pain affects sleeping. Patient pain affects QOL and function, Patient goals to decrease pain SOCAL: VOCATION: retired Pain Right Hip: Pain Intensity (Out of 10): 5 Pain Intensity Range: 10 Objective Objective: POSTURE: mild forward GAIT: mild forward antalgic gait with decrease stance time RLE NEURO: denies paresthesia/tingling PALPTION: unremarkable AROM: hip flexion 100 degrees pain ,hip degrees PROM: IR 20 degrees pain MMT: quads/hams 4/5 ,( peak force) hip flexion 20.3,hip abduction 10.6 Special Tests R Hip Scour: Positive R Hip Quadrant - Intraarticular Pathology: Positive R Hip ANGELO - Intraarticular Pathology: Positive R Hip Impingement Provocation - Labrum: Negative R Hip Trendelenberg - Glut Medius: Negative R Hip Carey - IT Band: Negative Balance/Special Test Scores Lower Extremity Functional Score: 28 Goals Goal 1:: Patient to be I with HEP Goal Time Frame: 4-6 Weeks Goal 2:: Patient to demonstrate 50% improvement with decrease pain and improved function with gait Goal Time Frame: 4-6 Weeks Goal 3:: Patient to improve peak force of hip by 5-10 # to improve gait Goal Time Frame: 4-6 Weeks Goal 4:: Patient to ambulate with normal serena 90% of the time Goal Time Frame: 4-6 Weeks Goal 5:: Patient to improve LFES score by 5 points to improve QOL and gait Goal Time Frame: 4-6 Weeks Rehabilitation Potential Physical Therapy Diagnosis: This patient appears to have signs of DJD hip with pain ,+ scouring ,weakness and decrease ROM impairs walking and standing thus benefit from skilled PT Rehabilitation Potential: Good Anticipated Interventions Patient/Client Instruction: Educate patient on: Condition and Plan of Care For the Purpose of:: To decrease pain, To increase ROM, To improve muscle performance and motor function, To increase tolerance to a ctivity/condition/position, To improve performance and independence with ADL's, To improve ability of physical actions for home/community/work/leisure, To improve health of tissue, To decrease soft tissue restriction and To increase flexibility/ROM Therapeutic Exercise to Include: Strength training, Endurance training, Balance training, Flexibilty training, Passive ROM and Active ROM Comment: HIP/QUADS/HAMS For the Purpose of:: To decrease pain, To increase ROM, To improve muscle performance and motor function, To improve ability to perform ADL's, To increase tolerance to activity/condition/position, To improve ability of physical actions for home/community/work/leisure, To improve health of tissue, To decrease soft tissue restriction and To increase flexibility/ROM Manual Therapy Techniques to Include: Mobilization Comment: STICK For the Purpose of:: To decrease pain, To increase ROM, To improve nutrient delivery to tissue, To increase oxygenation perfusion, To improve health of tissue and To decrease soft tissue restriction Text: Thank you for the opportunity to evaluate your patient. For Medicare and Medicare HMO plans, please review the plan of care and approve it. It will need to be FAXED BACK to us at [phone] for Medicare purposes. For Medicare only, by signing this I certify the plan of care. Please let me know if there are questions or concerns regarding this plan of care. Physician Signature: Date:
--- NOTE | 2023-04-15 13:56 | HP.PTDCSUM ---
Discharge Summary D/C summary: It has been my pleasure to treat CYNDY GUNN referred by Dolly Rodriguez NP-C, with the diagnosis of RIGHT HIP PAIN for a total of 8 visit(s). Discharge Date: Please see the following information for a summary of their discharge status. Subjective Subjective: Doing better overall with ex's and will be going to [facility] Right Hip: Pain Intensity (Out of 10): 1 Overall Improvement % Improvement: 80 Objective Objective/Function: POSTURE: mild forward GAIT: mild forward antalgic gait with decrease stance time RLE NEURO: denies paresthesia/tingling PALPTION: unremarkable AROM: hip flexion 100 degrees pain ,hip [id number] degrees PROM: IR 20 degrees pain MMT: quads/hams 4/5 ,( peak force) hip flexion 27.2hip abduction 18.9 Goals Goal 1:: Patient to be I with HEP Goal Progress: Goal Met Goal 2:: Patient to demonstrate 50% improvement with decrease pain and improved function with gait Goal Progress: Goal Met Goal 3:: Patient to improve peak force of hip by 5-10 # to improve gait Goal 4:: Patient to ambulate with normal serena 90% of the time Goal Progress: Goal Met Goal 5:: Patient to improve LFES score by 5 points to improve QOL and gait Goal Progress: Goal Met Plan Plan: D/C TO [facility] D/C Information d/c sentence: If there are questions or concerns regarding this patient's physical therapy, please feel free to call me at [phone]. Thank you for the referral of this patient. Sincerely, Francisco Keller, PT, Cert MDT, OCS Balance/Gait/Functional tests Balance/Special Test Scores Lower Extremity Functional Score: 55 Improvement % Improvement: 80
== END 2023-04-15 19:00 | disposition home or self-care (01) ==
LOC: PT 13:30
PROVIDERS: PCP Internal Medicine; Referring Provider Nurse Practitioner Family; Visit Provider Nurse Practitioner Family
DX: M25.551 Pain in right hip (principal); R10.31 Right lower quadrant pain
CPT/HCPCS: 97110; 97162

== ENCOUNTER 2023-07-27 10:13 | Outpatient (RCR) | payer MEDICARE, BC, SELFPAY ==
[2017-01-31 10:22] VITALS: BMI 29.3
[2023-04-17 20:38] VITALS: BMI 29.0
[2023-07-27 11:24] LABS: International Normalized Ratio 2.3
== END 2023-08-16 22:25 | disposition home or self-care (01) ==
LOC: LAB 10:13
PROVIDERS: PCP Internal Medicine; Referring Provider Nurse Practitioner Family; Visit Provider Nurse Practitioner Family
DX: I48.0 Paroxysmal atrial fibrillation (principal); Z79.01 Long term (current) use of anticoagulants
CPT/HCPCS: 36415; 85610

== ENCOUNTER 2023-09-06 13:59 | Outpatient (RCR) | payer MEDICARE, BC, SELFPAY ==
[2017-01-31 10:22] VITALS: BMI 29.3
[2023-08-16 22:26] VITALS: BMI 29.0
[2023-09-06 14:40] LABS: Prothrombin Time (Protime)PT. 30.6 SECONDS (11.7-14.9)
== END 2023-09-06 18:00 | disposition home or self-care (01) ==
LOC: LAB 13:59
PROVIDERS: PCP Internal Medicine; Referring Provider Nurse Practitioner Family; Visit Provider Nurse Practitioner Family
DX: I48.0 Paroxysmal atrial fibrillation (principal); Z79.01 Long term (current) use of anticoagulants
CPT/HCPCS: 36415; 85610

== ENCOUNTER 2023-10-03 09:53 | Outpatient (RCR) | payer MEDICARE, BC, SELFPAY ==
[2017-01-31 10:22] VITALS: BMI 29.3
[2023-09-19 08:24] VITALS: BMI 29.0
[2023-10-03 11:03] LABS: International Normalized Ratio 2.2; Prothrombin Time (Protime)PT. 24.4 SECONDS (11.7-14.9)
== END 2023-10-03 18:00 | disposition home or self-care (01) ==
LOC: LAB 09:53
PROVIDERS: PCP Internal Medicine; Referring Provider Nurse Practitioner Family; Visit Provider Nurse Practitioner Family
DX: I48.0 Paroxysmal atrial fibrillation (principal); Z79.01 Long term (current) use of anticoagulants
CPT/HCPCS: 36415; 85610

== ENCOUNTER 2023-11-17 11:06 | Outpatient (RCR) | payer MEDICARE, BC, SELFPAY ==
[2017-01-31 10:22] VITALS: BMI 29.3
[2023-10-16 17:28] VITALS: BMI 29.0
[2023-11-17 12:04] LABS: International Normalized Ratio 2.9; Prothrombin Time (Protime)PT. 30.4 SECONDS (11.7-14.9)
== END 2023-11-17 18:00 | disposition home or self-care (01) ==
LOC: LAB 11:06
PROVIDERS: PCP Internal Medicine; Referring Provider Nurse Practitioner Family; Visit Provider Nurse Practitioner Family
DX: I48.0 Paroxysmal atrial fibrillation (principal); Z79.01 Long term (current) use of anticoagulants
CPT/HCPCS: 36415; 85610

== ENCOUNTER → 2023-12-15 | Outpatient (CLI) | payer MEDICARE, BC, SELFPAY ==
[2017-01-31 10:22] VITALS: BMI 29.3
--- NOTE | 2023-12-15 08:25 | BI_ITS ---
MAMMOGRAPHY - BILATERAL SCREENING REASON FOR EXAM: Female, 78 years old. Routine annual screening examination. PERTINENT HISTORY: Aunt with breast cancer. TECHNIQUE: Digital bilateral breast jerrell (3D mammographic acquisition) in the CC and MLO projections. 2-D mediolateral oblique (MLO) and craniocaudad (CC) views of both breasts were obtained. CAD: Full Field Digital Mammography with Computer Added Detection was performed. COMPARISON: Comparison is made with prior study dated December 13, 2022 and December 08, 2021. FINDINGS: Breast Composition: There are scattered areas of fibroglandular density. There are no dominant masses or suspicious calcifications. No other significant abnormalities are identified. There has been no significant change since the prior study. BI/SCRN MAMM (CAD)W/JERRELL BILAT IMPRESSION: Stable bilateral screening mammogram. Yearly follow-up mammogram recommended. (A) ASSESSMENT CATEGORY: BIRADS Category 1: Negative. A letter regarding these results will be sent to the patient by the facility within 30 days. Approximately 10% of breast cancers are not detected by mammography. A normal mammogram should not delay biopsy of a clinically suspicious abnormality. [id number] Electronically Signed: Celestine Yo MD at 9:14 EDT ,
== END | disposition home or self-care (01) ==
LOC: OPBI 08:22
PROVIDERS: PCP Internal Medicine; Referring Provider Internal Medicine; Visit Provider Internal Medicine
DX: Z12.31 Encounter for screening mammogram for malignant neoplasm of breast (principal); Z80.3 Family history of malignant neoplasm of breast
CPT/HCPCS: 77063; 77067

== ENCOUNTER 2024-01-06 12:25 | Outpatient (RCR) | payer MEDICARE, BC, SELFPAY ==
[2017-01-31 10:22] VITALS: BMI 29.3
[2023-12-18 01:45] VITALS: BMI 29.0
[2024-01-06 13:16] LABS: International Normalized Ratio 3.2; Prothrombin Time (Protime)PT. 32.3 SECONDS (11.7-14.9)
== END 2024-01-06 18:00 | disposition home or self-care (01) ==
LOC: LAB 12:25
PROVIDERS: PCP Internal Medicine; Referring Provider Nurse Practitioner Family; Visit Provider Nurse Practitioner Family
DX: I48.0 Paroxysmal atrial fibrillation (principal); Z79.01 Long term (current) use of anticoagulants
CPT/HCPCS: 36415; 85610

== ENCOUNTER 2024-03-27 11:33 | Outpatient (RCR) | payer MEDICARE, BC, SELFPAY ==
[2017-01-31 10:22] VITALS: BMI 29.3
[2024-01-16 22:41] VITALS: BMI 29.0
[2024-03-27 12:57] LABS: International Normalized Ratio 2.6; Prothrombin Time (Protime)PT. 27.7 SECONDS (11.7-14.9)
== END 2024-03-27 18:00 | disposition home or self-care (01) ==
LOC: LAB 11:33
PROVIDERS: PCP Internal Medicine; Referring Provider Nurse Practitioner Family; Visit Provider Nurse Practitioner Family
DX: I48.0 Paroxysmal atrial fibrillation (principal); Z79.01 Long term (current) use of anticoagulants

== ENCOUNTER 2024-08-03 10:57 | Outpatient (RCR) | payer MEDICARE, BC, SELFPAY ==
[2017-01-31 10:22] VITALS: BMI 29.3
[2024-04-17 21:20] VITALS: BMI 29.0
[2024-08-03 12:17] LABS: International Normalized Ratio 2.5; Prothrombin Time (Protime)PT. 27.3 SECONDS (11.7-14.9)
== END 2024-08-15 18:00 | disposition home or self-care (01) ==
LOC: LAB 10:57
PROVIDERS: Internal Medicine Cardiovascular Disease; PCP Internal Medicine; Referring Provider Nurse Practitioner Family; Visit Provider Nurse Practitioner Family
DX: I48.0 Paroxysmal atrial fibrillation (principal); Z79.01 Long term (current) use of anticoagulants
CPT/HCPCS: 36415; 85610

== ENCOUNTER → 2024-08-10 | Outpatient (CLI) | payer MEDICARE, BC, SELFPAY ==
[2017-01-31 10:22] VITALS: BMI 29.3
--- NOTE | 2024-08-10 10:35 | RAD_ITS ---
PROCEDURE: CHEST PA AND LATERAL 08/10/2024 REASON FOR EXAM: AMIODARONE TECHNIQUE: Frontal and lateral views of the chest. COMPARISON: Comparison is made with prior study dated April 01, 2021. FINDINGS: Hardware: None Heart: The heart size is normal. Mediastinum: The mediastinal contour is unremarkable. Atherosclerotic calcification of the aortic arch. Lungs: The lungs are clear. Bones: Degenerative changes are identified within the thoracic spine. RAD/Chest PA and Lateral IMPRESSION: NO SIGNIFICANT CHANGE SINCE THE PRIOR EXAM. No acute abnormality is seen. Reading Location: [place] [id number]
[2024-08-10 11:41] LABS: ALB/GLOB Ratio 3.4 RATIO (0.9-2.4); AST(SGOT) 261 U/L (<=31); Alanine Aminotransfer ALT/SGPT 190 U/L (<=34); Albumin, Serum 4.1 g/dL (3.4-4.8); Alkaline Phosphatase 80 U/L (35-104); Anion Gap 14 (5-15); BUN 24 mg/dL (4-19); BUN/Creat Ratio 18.3 RATIO (10-20); Chloride 99 mmol/L (98-108); Cholesterol 128 mg/dL (<=200); Creatinine, Serum 1.33 mg/dL (0.70-1.20); EST Glomerular Filtration Rate 41 (>60); Globulin 1.2 g/dL (2.2-4.2); Glucose 155 mg/dL (70-99); High Density Lipoprotein 38 mg/dL; Low Density Lipoprotein Calc. 63 mg/dL; Potassium 3.7 mmol/L (3.3-5.1); Protein, Total 5.3 g/dL (5.9-8.4); Sodium Level 139 mmol/L (133-145); Total Bilirubin 0.46 mg/dL (0.00-1.30); Triglycerides 135 mg/dL; Very Low Density Lipoprotein 27 mg/dL (5-40); cholesterol:hdl ratio screen 3.36
== END | disposition home or self-care (01) ==
PROVIDERS: PCP Internal Medicine; Referring Provider Nurse Practitioner Gerontology; Visit Provider Nurse Practitioner Gerontology
DX: Z79.899 Other long term (current) drug therapy (principal); I25.10 Atherosclerotic heart disease of native coronary artery without angina pectoris; E78.5 Hyperlipidemia, unspecified
CPT/HCPCS: 36415; 71046; 80053; 80061; 84439; 84443

== ENCOUNTER 2024-09-17 11:27 | Outpatient (RCR) | payer MEDICARE, BC, SELFPAY ==
[2017-01-31 10:22] VITALS: BMI 29.3
[2024-08-15 20:19] VITALS: BMI 29.0
[2024-09-17 12:39] LABS: International Normalized Ratio 2.7; Prothrombin Time (Protime)PT. 28.9 SECONDS (11.7-14.9)
== END 2024-09-17 18:00 | disposition home or self-care (01) ==
LOC: LAB 11:27
PROVIDERS: PCP Internal Medicine; Referring Provider Nurse Practitioner Family; Visit Provider Nurse Practitioner Family
DX: I48.0 Paroxysmal atrial fibrillation (principal); Z79.01 Long term (current) use of anticoagulants
CPT/HCPCS: 36415; 85610

== ENCOUNTER 2024-10-16 11:50 | Outpatient (RCR) | payer MEDICARE, BC, SELFPAY ==
[2017-01-31 10:22] VITALS: BMI 29.3
[2024-10-16 13:18] LABS: Prothrombin Time (Protime)PT. 22.7 SECONDS (11.7-14.9)
== END 2024-11-15 20:37 | disposition home or self-care (01) ==
LOC: LAB 11:50
PROVIDERS: PCP Internal Medicine; Referring Provider Nurse Practitioner Family; Visit Provider Nurse Practitioner Family
DX: I48.0 Paroxysmal atrial fibrillation (principal); Z79.01 Long term (current) use of anticoagulants
CPT/HCPCS: 36415; 85610

== ENCOUNTER → 2024-11-06 | Outpatient (CLI) | payer MEDICARE, BC, SELFPAY ==
[2017-01-31 10:22] VITALS: BMI 29.3
--- NOTE | 2024-11-06 17:55 | STRESSREP ---
Stress Test Report Pharmacologic myocardial perfusion stress test. 79-year-old lady with a history of previous myocardial infarction Resting EKG demonstrates sinus bradycardia with a rate of 50 bpm. Resting blood pressure is 134/60 mmHg. 0.4 mg of regadenoson was infused per usual protocol followed by rapid intravenous saline flush injection. Continuous EKG monitoring was performed. The maximum heart rate was 67 bpm which was 47 of max impacted heart rate the maximum workload was 1 metabolic equivalent. At rest there were no ST or T wave changes noted to suggest ischemia and at peak infusion nonspecific ST changes were noted which did not meet the criteria for ischemia. No clinical angina is noted. The final blood pressure was 134/60 mmHg. Myocardial perfusion protocol. 10.8 mCi of technetium 99m sestamibi was injected at rest. 0.4 mg of regadenoson was infused per usual protocol. At peak infusion 33.7 mCi of technetium 99m sestamibi was injected stress images were obtained stress and rest images were reconstructed and compared in the short axis vertical long and horizontal long axis. Gated images were also obtained. Perfusion SPECT analysis: Review of the stress images demonstrate normal uptake of tracer noted in all areas of the myocardium. Small defect is noted at the apex. The resting images demonstrate a similar pattern with normal perfusion in all areas of the myocardium except for the apex with a small defect. The above is suggestive of a previous apical infarct. No ischemia present. Gated SPECT analysis: The gated ejection fraction is 55%. Conclusion: Normal pharmacologic myocardial perfusion stress test. Preserved ejection fraction. Previous small apical infarct. No ischemia noted
== END | disposition home or self-care (01) ==
LOC: CVS 07:33
PROVIDERS: PCP Internal Medicine; Referring Provider Nurse Practitioner Gerontology; Visit Provider Nurse Practitioner Gerontology
DX: I25.10 Atherosclerotic heart disease of native coronary artery without angina pectoris (principal); Z95.5 Presence of coronary angioplasty implant and graft
CPT/HCPCS: 78452; 93017; A9500; A4216; J2785

== ENCOUNTER 2024-12-04 11:23 | Outpatient (RCR) | payer MEDICARE, BC, SELFPAY ==
[2017-01-31 10:22] VITALS: BMI 29.3
[2024-11-27 15:22] LABS: Prothrombin Time (Protime)PT. 18.0 SECONDS (11.7-14.9)
[2024-12-04 11:49] LABS: Prothrombin Time (Protime)PT. 28.7 SECONDS (11.7-14.9)
== END 2024-12-04 18:00 | disposition home or self-care (01) ==
LOC: LAB 11:23
PROVIDERS: Internal Medicine Cardiovascular Disease; PCP Internal Medicine; Referring Provider Nurse Practitioner Family; Visit Provider Nurse Practitioner Family
DX: I48.0 Paroxysmal atrial fibrillation (principal); Z79.01 Long term (current) use of anticoagulants
CPT/HCPCS: 36415; 85610

== ENCOUNTER → 2024-12-18 | Outpatient (CLI) | payer MEDICARE, BC, SELFPAY ==
[2017-01-31 10:22] VITALS: BMI 29.3
--- NOTE | 2024-12-18 08:48 | BI_ITS ---
EXAM: SCRN MAMM (CAD)W/JERRELL BILAT DATE: 12/18/2024 CLINICAL HISTORY: F, Age 79 y/o , BREAST CANCER SCREENING Aunt with breast cancer. TECHNIQUE: Procedure Code: [id number] Modality: MG Procedure: SCRN MAMM (CAD)W/JERRELL BILAT COMPARISON: Prior exam(s) dated December 15, 2023.. FINDINGS: TISSUE DENSITY: There are scattered areas of fibroglandular density. Bilateral Breast Mammographic Findings: No significant masses, calcifications or other abnormalities are identified. No suspicious masses, areas of developing architectural distortion, or suspicious calcifications. There has been no significant interval change. BI/SCRN MAMM (CAD)W/JERRELL BILAT IMPRESSION: Stable screening bilateral mammogram. OVERALL FINAL ASSESSMENT BI-RADS 1: NEGATIVE. RECOMMENDATION: Routine annual follow-up in 1 Year A letter with findings and recommendations will be mailed to the patient. Reading Location: [place] [id number]
== END | disposition home or self-care (01) ==
LOC: OPBI 08:47
PROVIDERS: PCP Internal Medicine; Referring Provider Internal Medicine; Visit Provider Internal Medicine
DX: Z12.31 Encounter for screening mammogram for malignant neoplasm of breast (principal); Z80.3 Family history of malignant neoplasm of breast
CPT/HCPCS: 77063; 77067

== ENCOUNTER 2025-01-11 11:15 | Outpatient (RCR) | payer MEDICARE, BC, SELFPAY ==
[2017-01-31 10:22] VITALS: BMI 29.3
[2025-01-11 12:06] LABS: Prothrombin Time (Protime)PT. 24.1 SECONDS (11.7-14.9)
[2025-01-11 13:03] LABS: AST(SGOT) 31 U/L (<=31); Alanine Aminotransfer ALT/SGPT 16 U/L (<=34); Albumin, Serum 4.0 g/dL (3.4-4.8); Alkaline Phosphatase 60 U/L (35-104); Bilirubin, Direct 0.16 mg/dL (0.00-0.30); Globulin 2.9 g/dL (2.2-4.2)
== END 2025-01-15 18:00 | disposition home or self-care (01) ==
LOC: LAB 11:15
PROVIDERS: Nurse Practitioner Gerontology; PCP Internal Medicine; Referring Provider Nurse Practitioner Family; Visit Provider Nurse Practitioner Family
DX: I48.0 Paroxysmal atrial fibrillation (principal); Z79.01 Long term (current) use of anticoagulants
CPT/HCPCS: 36415; 80076; 85610

== ENCOUNTER 2025-03-04 14:01 | Outpatient (RCR) | payer MEDICARE, BC, SELFPAY ==
[2017-01-31 10:22] VITALS: BMI 29.3
[2025-03-04 14:48] LABS: Prothrombin Time (Protime)PT. 18.6 SECONDS (11.7-14.9)
== END 2025-03-16 18:00 | disposition home or self-care (01) ==
LOC: LAB 14:01
PROVIDERS: PCP Internal Medicine; Referring Provider Nurse Practitioner Family; Visit Provider Nurse Practitioner Family
DX: I48.0 Paroxysmal atrial fibrillation (principal); Z79.01 Long term (current) use of anticoagulants
CPT/HCPCS: 36415; 85610

== ENCOUNTER → 2025-03-11 | Outpatient (CLI) | payer MEDICARE, BC, SELFPAY ==
[2017-01-31 10:22] VITALS: BMI 29.3
== END | disposition home or self-care (01) ==
LOC: CIMLAB 08:25
PROVIDERS: PCP Internal Medicine; Referring Provider Internal Medicine; Visit Provider Internal Medicine
DX: E11.9 Type 2 diabetes mellitus without complications (principal)
CPT/HCPCS: 36415; 83036

== ENCOUNTER 2025-04-16 11:47 | Outpatient (RCR) | payer MEDICARE, BC, SELFPAY ==
[2017-01-31 10:22] VITALS: BMI 29.3
[2025-04-09 10:56] LABS: Prothrombin Time (Protime)PT. 21.5 SECONDS (11.7-14.9)
[2025-04-16 12:09] LABS: Prothrombin Time (Protime)PT. 26.7 SECONDS (11.7-14.9)
== END 2025-04-16 18:00 | disposition home or self-care (01) ==
LOC: LAB 11:47
PROVIDERS: PCP Internal Medicine; Referring Provider Nurse Practitioner Family; Visit Provider Nurse Practitioner Family
DX: I48.0 Paroxysmal atrial fibrillation (principal); Z79.01 Long term (current) use of anticoagulants
CPT/HCPCS: 36415; 85610